=== PATIENT | male | born 1930 | race Caucasian/White ===

== ENCOUNTER → 2016-03-28 | Outpatient (CLI) | payer MEDICARE, OTHER | LOC: GMAH 11:09 | PROVIDERS: ATTEND Family Medicine | DX: D63.1 Anemia in chronic kidney disease (principal); N18.4 Chronic kidney disease, stage 4 (severe) ==

== ENCOUNTER → 2016-05-18 | Outpatient (CLI) | payer MEDICARE, OTHER | END | disposition home or self-care (01) | LOC: GMAH 10:19 | PROVIDERS: ATTEND Family Medicine | DX: N18.4 Chronic kidney disease, stage 4 (severe) (principal) ==

== ENCOUNTER → 2016-06-29 | Outpatient (CLI) | payer MEDICARE, OTHER | LOC: GMAH 11:30 | PROVIDERS: ATTEND Family Medicine | DX: N18.4 Chronic kidney disease, stage 4 (severe) (principal); D63.1 Anemia in chronic kidney disease ==

== ENCOUNTER → 2016-07-19 | Outpatient (CLI) | payer MEDICARE, OTHER | END | disposition home or self-care (01) | LOC: GMA 10:25 | PROVIDERS: ATTEND Family Medicine | DX: Z12.5 Encounter for screening for malignant neoplasm of prostate (principal); E03.9 Hypothyroidism, unspecified | CPT/HCPCS: 84443; 84550; G0103 ==

== ENCOUNTER → 2016-07-20 | Outpatient (CLI) | payer MEDICARE, OTHER | END | disposition home or self-care (01) | LOC: GMAH 16:51 | PROVIDERS: ATTEND Family Medicine | DX: N39.0 Urinary tract infection, site not specified (principal) ==

== ENCOUNTER → 2016-08-17 | Outpatient (CLI) | payer MEDICARE, OTHER | END | disposition home or self-care (01) | LOC: GMAH 09:41 | PROVIDERS: ATTEND Family Medicine | DX: N18.4 Chronic kidney disease, stage 4 (severe) (principal); D63.1 Anemia in chronic kidney disease ==

== ENCOUNTER → 2016-11-23 | Outpatient (CLI) | payer MEDICARE, OTHER | END | disposition home or self-care (01) | LOC: GMAH 10:38 | PROVIDERS: ATTEND Family Medicine | DX: N18.4 Chronic kidney disease, stage 4 (severe) (principal); E64.9 Sequelae of unspecified nutritional deficiency ==

== ENCOUNTER → 2017-01-09 | Outpatient (CLI) | payer MEDICARE, OTHER | END | disposition home or self-care (01) | LOC: GMAH 09:34 | PROVIDERS: ATTEND Family Medicine | DX: N18.4 Chronic kidney disease, stage 4 (severe) (principal); D63.1 Anemia in chronic kidney disease ==

== ENCOUNTER → 2017-02-10 | Outpatient (CLI) | payer MEDICARE, OTHER ==
--- NOTE | 2017-02-10 13:30 | US ---
EXAM DESCRIPTION: Carotid Duplex: ULTRASOUND. CLINICAL HISTORY: OCCLUSION AND STENOSIS OF LEFT CAROTID ARTERY COMPARISON: None. TECHNIQUE: Transcutaneous scanning utilizing 2-dimensional and Doppler modes to evaluate the bilateral carotid systems and vertebral arteries. Percentage of diameter of stenosis or no stenosis recorded will be based upon NASCET criteria. FINDINGS: Peak systolic/end diastolic (CM-Sec) CCA Right 52/10 Left 60/7. ICA Right proximal 59/9, distal 48/0. Left proximal 36/11, mid 36/8. Vertebral Right 43/7 Left 20/4. ECA (PS Only) Right 36 left 44. ICA/CCA peak systolic ratio: Right 1.1 Left 1.6 ICA/CCA end diastolic ratio: Right 0.9 Left 1.5 Vertebral arteries: antegrade flow. Comments: Atherosclerotic plaque in the bilateral common carotid bifurcations. Spectral broadening bilateral proximal and mid ICAs. Proximal right ICA. Area stenosis 28%; diameter stenosis 49%. Right common carotid bulb area stenosis 40%; diameter stenosis 40%. Left CCA bulb area stenosis 35%; diameter stenosis 37%. Left proximal ICA. Area stenosis 46%; diameter stenosis 30%. IMPRESSION: 1. Doppler evaluation of the bilateral carotid systems and vertebral arteries shows no hemodynamically significant stenoses. 2. No significant amount of plaque seen in the carotid arteries bilaterally. Bilateral vertebral arteries showed antegrade-cephalad flow. Electronically signed by: Everette Orozco MD 02/10/2017 1:29 PM SECRETARIAL STENOGRAPHER
== END ==
LOC: US 10:57
PROVIDERS: ATTEND Family Medicine
DX: I65.22 Occlusion and stenosis of left carotid artery (principal)

== ENCOUNTER → 2017-05-15 | Outpatient (CLI) | payer MEDICARE, OTHER | LOC: GMAH 09:17 | PROVIDERS: ATTEND Family Medicine | DX: D64.9 Anemia, unspecified (principal); N18.4 Chronic kidney disease, stage 4 (severe) ==

== ENCOUNTER → 2017-07-10 | Outpatient (CLI) | payer MEDICARE, OTHER | LOC: GMAH 10:32 | PROVIDERS: ATTEND Family Medicine | DX: D63.1 Anemia in chronic kidney disease (principal); N18.4 Chronic kidney disease, stage 4 (severe) ==

== ENCOUNTER → 2017-07-25 | Outpatient (CLI) | payer MEDICARE, OTHER | LOC: GMAH 10:36 | PROVIDERS: ATTEND Family Medicine | DX: E03.9 Hypothyroidism, unspecified (principal); N39.0 Urinary tract infection, site not specified; Z12.5 Encounter for screening for malignant neoplasm of prostate; M10.9 Gout, unspecified | CPT/HCPCS: 84443; 84550; 87086; G0103 ==

== ENCOUNTER → 2017-08-28 | Outpatient (CLI) | payer MEDICARE, OTHER ==
--- NOTE | 2017-08-28 11:42 | RAD ---
EXAM DESCRIPTION: Radiographs of the right Shoulder: CLINICAL HISTORY: M25.511. Pain in right shoulder. COMPARISON: Portable chest 01/04/2010. TECHNIQUE: AP internal external rotation images. Lateral "Y" image. axillary image, right shoulder. FINDINGS: Marked joint space narrowing right glenohumeral space with subchondral sclerosis and radiolucency on the humeral head and glenoid. Marginal spurs on both services. Superior migration of the humeral head abutting the undersurface of the acromion. Bony loose bodies in the joint capsule with effusion. Some bony densities may represent tendon or muscular calcifications, especially in the rotator interval. Narrowing of the AC joint with inferior marginal spurs. No definite fractures. No bony abnormalities of the right ribs. Pleural thickening in the hemithorax. 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 Also arthrosis of the AC joint with marginal spurs encroaching on the rotator interval. Radiodense loose bodies in the joint capsule and possible soft tissue calcifications. This represents significant unfavorable change compared to appearance of the right shoulder on portable chest x-ray in January 2010. Electronically signed by: Everette Orozco MD 08/28/2017 11:41 AM CDT
== END ==
LOC: RAD 08:10
PROVIDERS: ATTEND Orthopaedic Surgery
DX: M25.511 Pain in right shoulder (principal)

== ENCOUNTER → 2017-09-18 | Outpatient (CLI) | payer MEDICARE, OTHER | LOC: GMAH 12:11 | PROVIDERS: ATTEND Family Medicine | DX: N18.4 Chronic kidney disease, stage 4 (severe) (principal); D63.1 Anemia in chronic kidney disease ==

== ENCOUNTER → 2018-03-05 | Outpatient (CLI) | payer MEDICARE, OTHER ==
--- NOTE | 2018-03-05 10:12 | US ---
EXAM DESCRIPTION: Aorta: Ultrasound. CLINICAL HISTORY: ABDOMINAL AORTIC ANEURYSM COMPARISON: Abdominal CT scan noncontrast 04/03/2014. TECHNIQUE: Transcutaneous scanning: Two-dimensional and Doppler modes. FINDINGS: Abdominal aorta diameter (cm) Proximal: 2.3 cm. Mid: 3.6. Distal: 2.0. Common Iliac diameter (mm) Right: 13 x 14. Left: 11 x 11. Other: Atherosclerotic irregularity and calcification of the intima.. IMPRESSION: 3.6 cm abdominal aortic aneurysm is greater than 1.5 times proximal abdominal aorta diameter. Borderline aneurysm right common iliac artery. Maximum diameter of the mid abdominal aorta was 3.[address] scan of the abdomen in 2014. Atherosclerotic changes in the vessels. [facility] Best Practice recommendations one-year imaging follow-up based upon the Journal of vascular surgery guidelines for follow-up imaging of abdominal aortic aneurysms. Please see below.* *AAA Size: Follow-up Recommendation (1): 3.5 - 3.9 cm Every 12 months (1)Based upon the Society for Vascular Surgery Guidelines: J Vasc Surg. 2009 Oct;50(4 Suppl):S2-49 (2)For aortas of max phyllis of 2.6-2.9 cm that meet criteria for AAA (>= 1.5 x proximal normal segment) Electronically signed by: Everette Orozco MD 03/05/2018 10:10 AM PHOTOENGRAVING RETOUCHER
== END ==
LOC: US 08:57
PROVIDERS: ATTEND Family Medicine
DX: I71.4 Abdominal aortic aneurysm, without rupture (principal)

== ENCOUNTER → 2018-03-08 | Outpatient (CLI) | payer MEDICARE, OTHER | LOC: GMAH 14:12 | PROVIDERS: ATTEND Family Medicine | DX: N18.4 Chronic kidney disease, stage 4 (severe) (principal) ==

== ENCOUNTER 2018-07-16 09:39 | Emergency (ER) | payer MEDICARE, OTHER ==
--- NOTE | 2018-07-16 10:23 | ED.PDOC ---
History of Present Illness - General Chief Complaint: General Stated Complaint: scrotal bleeding Time Seen by Provider: 07/16/18 09:58 Source: patient, family - History of Present Illness Initial Comments: HE HAS BEE BLEEDING INTERMITTENTLY FROM THE SCROTUM FOR THE PAST THREE WEEKS. AT TIMES IT IS MORE THAN OTHER ANS HAS BEEN USING A KOTEX. USES ASA 325 DAILY. DENIES ANY PAIN. Timing/Duration: other - THREE WEEKS Severity: mild Worsening Factors: nothing Associated Symptoms: denies symptoms Allergies/Adverse Reactions: Allergies NO KNOWN ALLERGY Allergy (Verified 07/16/18 09:59) Home Medications: Ambulatory Orders Allopurinol [Zyloprim] 300 mg PO DAILY 01/20/15 Aspirin [(None)] 325 mg PO QD 01/20/15 Diltiazem HCl Coated Beads [Diltiazem Cd] 80 mg PO DAILY 01/20/15 Dorzolamide HCl-Timolol Maleat [Dorzolamide HCl/Timolol M 22.3-6.8 mg/ml] 1 nirmal OP BID 01/20/15 Levothyroxine Sodium 50 mcg PO DAILY 01/20/15 Omeprazole 20 mg PO LAURA-OTH-DAY 01/20/15 Sodium Bicarbonate Tab 40 gr PO TID 01/20/15 Travoprost [Travatan Z] 1 drop OP BEDTIME 01/20/15 Review of Systems - Review of Systems Constitutional: States: no symptoms reported EENTM: States: no symptoms reported Respiratory: States: no symptoms reported Cardiology: States: no symptoms reported Gastrointestinal/Abdominal: States: no symptoms reported Genitourinary: States: no symptoms reported Musculoskeletal: States: no symptoms reported Skin: States: other - SCROTAL BLEEDING Neurological: States: no symptoms reported Endocrine: States: no symptoms reported Hematologic/Lymphatic: States: easy bleeding Past Medical History (General) - Patient Medical History Hx Congestive Heart Failure: No Hx Diabetes: No Physical Exam - Physical Exam General Appearance: Alert, No apparent distress, Well Developed, Well Hydrated Eye Exam: bilateral normal Ears, Nose, Throat: hearing grossly normal, normal ENT inspection, normal pharynx Neck: non-tender, full range of motion, supple, normal inspection Respiratory: chest non-tender, lungs clear, normal breath sounds, no respiratory distress, no accessory muscle use Cardiovascular/Chest: normal peripheral pulses, regular rate, rhythm, no edema, no gallop, no JVD, no murmur Peripheral Pulses: radial,right: 2+, radial,left: 2+ Gastrointestinal/Abdominal: normal bowel sounds, non tender, soft, no organomegaly, no pulsatile mass Rectal Exam: deferred Back Exam: normal inspection Extremity: normal range of motion 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 AT THE TIME OF THE EXAM HE HAS SOME DRIED BLOOD ON THE SCROTUM BUT THERE IS NO ACTIVE BLEEDING. THESE ARE MULTIPLE ANGIOMAS. I BELIEVE HE WOULD BE BETTER SERVED BY SEEING HIS SKIN DOCTOR OR THE UROLOGIST. Departure - Departure Clinical Impression: Angioma of skin Time of Disposition: 10:28 Disposition: Discharge to Home or Self Care Condition: Good Departure Forms: ED Discharge - Pt. Copy, Patient Portal Self Enrollment Referrals: Manny Ramey MD [Primary Care Provider] - 1-2 Weeks Home Medications: Ambulatory Orders Allopurinol [Zyloprim] 300 mg PO DAILY 01/20/15 Aspirin [(None)] 325 mg PO QD 01/20/15 Diltiazem HCl Coated Beads [Diltiazem Cd] 80 mg PO DAILY 01/20/15 Dorzolamide HCl-Timolol Maleat [Dorzolamide HCl/Timolol M 22.3-6.8 mg/ml] 1 nirmal OP BID 01/20/15 Levothyroxine Sodium 50 mcg PO DAILY 01/20/15 Omeprazole 20 mg PO LAURA-OTH-DAY 01/20/15 Sodium Bicarbonate Tab 40 gr PO TID 01/20/15 Travoprost [Travatan Z] 1 drop OP BEDTIME 01/20/15 Additional Instructions: SUGGEST TO FOLLOW UP WITH YOUR SKIN DOCTOR. MOST LIKELY YOU WILL NEED THESE ANGIOMAS CAUTERIZED.
[2018-07-16 10:24] VITALS: TEMP 97.8
[2018-07-16 11:09] VITALS: BP 160/79; O2SAT 96
== END 2018-07-16 10:52 | disposition home or self-care (01) ==
LOC: ER 09:39
DX: D18.01 Hemangioma of skin and subcutaneous tissue (principal); Z79.82 Long term (current) use of aspirin; Z79.899 Other long term (current) drug therapy

== ENCOUNTER 2018-09-14 08:16 | Emergency (ER) | payer MEDICARE, OTHER ==
--- NOTE | 2018-09-14 08:28 | ED.PDOC ---
History of Present Illness - General Chief Complaint: Trauma Stated Complaint: Standing level fall w/ head injury Time Seen by Provider: 09/14/18 08:24 Source: patient, family, EMS Exam Limitations: no limitations - History of Present Illness Initial Comments: patient is a very pleasant 87-year-old who was in his garage and bent over to put some rags in a bucket when all of a sudden the room started spinning and he fell down. Patient denies any loss of consciousness but he hit his head when he fell and landed underneath the car. He denies any injury to the rest of his body although still he states he always has aches and pains of his joints. Patient has been battling some vertigo over the past several weeks that he's been working with a doctor for. Patient states currently he is not dizzy, denies vision change, and has no emesis. 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 He was on aspirin until 4 weeks ago when it was stopped after he started having bleeding with even a small dose. Occurred: just prior to arrival Severity: moderate Pain Location: head Method of Injury: fall Worsening Factors: rest Loss of Consciousness: no loss of consciousness Associated Symptoms (Fall): dizziness Allergies/Adverse Reactions: Allergies NO KNOWN ALLERGY Allergy (Verified 09/14/18 08:37) Home Medications: Ambulatory Orders Allopurinol [Zyloprim] 300 mg PO DAILY 01/20/15 Aspirin [(None)] 325 mg PO QD 01/20/15 Diltiazem HCl Coated Beads [Diltiazem Cd] 80 mg PO DAILY 01/20/15 Dorzolamide HCl-Timolol Maleat [Dorzolamide HCl/Timolol M 22.3-6.8 mg/ml] 1 nirmal OP BID 01/20/15 Levothyroxine Sodium 50 mcg PO DAILY 01/20/15 Omeprazole 20 mg PO LAURA-OTH-DAY 01/20/15 Sodium Bicarbonate Tab 40 gr PO TID 01/20/15 Travoprost [Travatan Z] 1 drop OP BEDTIME 01/20/15 Review of Systems - Review of Systems Constitutional: States: no symptoms reported. Denies: chills, fever EENTM: States: no symptoms reported. Denies: blurred vision, double vision, ear pain, nose pain Respiratory: States: no symptoms reported. Denies: cough, short of breath Cardiology: States: no symptoms reported. Denies: chest pain, palpitations Gastrointestinal/Abdominal: States: no symptoms reported. Denies: abdominal pain, diarrhea, nausea, vomiting Genitourinary: States: no symptoms reported Musculoskeletal: States: see HPI Past Medical History (General) - Patient Medical History Hx Congestive Heart Failure: No Hx Hypertension: Yes Hx Thyroid Disease: Yes Hx Diabetes: No Hx Cancer: Yes - skin only Hx Hepatitis C: No - Vaccination History Hx Tetanus, Diphtheria Vaccination: No Hx Influenza Vaccination: Yes Hx Pneumococcal Vaccination: Yes - Social History Hx Tobacco Use: No Hx Alcohol Use: Yes - occ beer Hx Substance Use: No Hx Substance Use Treatment: No Hx Depression: No Family Medical History - Family History Mother Living Status: Hx Cardiac Disease: Yes Physical Exam - Physical Exam General Appearance: Alert, Comfortable, No apparent distress Head Injury: other - 4 cm hematoma to the posterior left scalp with no laceration Eye Exam: bilateral abnormal pupil - s/p cataract removal left ENT Exam: hearing grossly normal, no evidence of ENT injury, no dental injury Neck Exam: non-tender, full range of motion, normal alignment, normal inspection Cardiovascular/Respiratory: regular rate, rhythm, no M/R/G, normal peripheral pulses, no JVD, normal breath sounds, no respiratory distress Gastrointestinal/Abdominal: normal bowel sounds, non tender, soft Back Exam: normal inspection, no CVA tenderness Extremity Exam: no evidence of injury 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, no motor/sensory deficits, alert, oriented x 3 Skin Exam: normal color - Osvaldo Coma Score Best Eye Response ([place]): (4) open spontaneously Best Verbal Response ([place]): (5) oriented Best Motor Response ([place]): (6) obeys commands Osvaldo Total: 15 Progress - Results/Orders Results/Orders: Patient Name: ELSA YEE Gender: Male Date of : 1930 Referring Physician: ROMY TONEY Organization: [facility] Accession Number: [id number] Requested Date: September 14, 2018 08:24 Report Status: Final Requested Procedure: 1 Procedure Description: Head Modality: CT Findings Reporting MD: [place], Durga Fellow MD: Not available Dictation Time: Insurance Sales Executive: Not available Acid Cutter Date: EXAM DESCRIPTION: Head CLINICAL HISTORY: fall with head injury no LOC COMPARISON: None available TECHNIQUE: Multiple axial images of the head without contrast. Multiplanar reformatted images. This exam was performed according to our departmental dose-optimization program, which includes automated exposure control, adjustment of the mA and/or kV according to patient size and/or use of iterative reconstruction technique. FINDINGS: There is no CT evidence of intracranial hemorrhage, mass effect, or large territory infarction. Moderate generalized volume loss. Moderate patchy supratentorial white matter hypodensities. There are no abnormal extra-axial fluid collections. Calcific plaque in the visualized arteries. No acute calvarial defect. Large left parietal scalp hematoma. The visualized paranasal sinuses and the mastoids are clear. IMPRESSION: 1. No acute intracranial abnormality. 2. Left parietal scalp hematoma. 3. Advanced senescent changes. Electronically signed by: Durga Almanzar MD 09/14/2018 9:19 AM CDT Patient Name: ELSA YEE Gender: Male Date of : 1930 Referring Physician: ROMY TONEY Organization: [facility] Accession Number: [id number] Requested Date: September 14, 2018 08:24 Report Status: Final Requested Procedure: 1 Procedure Description: Cervical Spine Modality: CT Findings Reporting MD: Durga Almanzar MD: Not available Dictation Time: Insurance Sales Executive: Not available Acid Cutter Date: EXAM DESCRIPTION: Cervical Spine CLINICAL HISTORY: fall with head injury no LOC COMPARISON: None Available. TECHNIQUE: Multiple axial images of the cervical spine without contrast. Multiplanar reformatted images. This exam was performed according to our departmental dose-optimization program, which includes automated exposure control, adjustment of the mA and/or kV according to patient size and/or use of iterative reconstruction technique. FINDINGS: The bones are demineralized, which limits evaluation. Straightening of the normal cervical lordosis. Vertebral body stature is maintained. There is no acute fracture or destructive osseous lesion. Advanced multilevel spondylitic changes throughout the cervical spine with multilevel severe disc narrowing, most advanced at C5-C6. Advanced degenerative changes at C1-C2. Interbody fusion at C6-C7. Multilevel disc osteophyte complexes, facet hypertrophy, and uncovertebral spurring. At C5-C6, there is moderate spinal canal stenosis and severe bilateral foraminal stenosis. Less pronounced stenoses at the remaining levels. Atherosclerosis in the visualized arteries. Emphysema and fibrosis in the lung apices. [facility] [address] [place] [address], [address] [place], [place] T [phone] F [phone] [facility] - Report exported on Sep 14, 2018 09:24:13 -0500 - Page 2 of 2 IMPRESSION: 1. No CT evidence of an acute osseous abnormality in the cervical spine. 2. Advanced multilevel spondylitic changes. 3. Other findings as above. Departure - Departure Clinical Impression: Contusion of head Qualifiers: Encounter type: initial encounter Contusion of head detail: scalp Qualified Code(s): S00.03XA - Contusion of scalp, initial encounter Fall Qualifiers: Encounter type: initial encounter Qualified Code(s): W19.XXXA - Unspecified fall, initial encounter Disposition: Discharge to Home or Self Care Condition: Good Departure Forms: ED Discharge - Pt. Copy, Patient Portal Self Enrollment Instructions: DI for Trauma Referrals: Manny Ramey MD [Primary Care Provider] - 1-2 Weeks Home Medications: Ambulatory Orders Allopurinol [Zyloprim] 300 mg PO DAILY 01/20/15 Aspirin [(None)] 325 mg PO QD 01/20/15 Diltiazem HCl Coated Beads [Diltiazem Cd] 80 mg PO DAILY 01/20/15 Dorzolamide HCl-Timolol Maleat [Dorzolamide HCl/Timolol M 22.3-6.8 mg/ml] 1 nirmal OP BID 01/20/15 Levothyroxine Sodium 50 mcg PO DAILY 01/20/15 Omeprazole 20 mg PO LAURA-OTH-DAY 01/20/15 Sodium Bicarbonate Tab 40 gr PO TID 01/20/15 Travoprost [Travatan Z] 1 drop OP BEDTIME 01/20/15 Additional Instructions: follow up with PCP in 3-4 days, return to ER for altered LOC, vision change, emesis
--- NOTE | 2018-09-14 09:19 | CT ---
EXAM DESCRIPTION: Cervical Spine CLINICAL HISTORY: fall with head injury no LOC COMPARISON: None Available. TECHNIQUE: Multiple axial images of the cervical spine without contrast. Multiplanar reformatted images. This exam was performed according to our departmental dose-optimization program, which includes automated exposure control, adjustment of the mA and/or kV according to patient size and/or use of iterative reconstruction technique. FINDINGS: The bones are demineralized, which limits evaluation. Straightening of the normal cervical lordosis. Vertebral body stature is maintained. There is no acute fracture or destructive osseous lesion. Advanced multilevel spondylitic changes throughout the cervical spine with multilevel severe disc narrowing, most advanced at C5-C6. Advanced degenerative changes at C1-C2. Interbody fusion at C6-C7. Multilevel disc osteophyte complexes, facet hypertrophy, and uncovertebral spurring. At C5-C6, there is moderate spinal canal stenosis and severe bilateral foraminal stenosis. Less pronounced stenoses at the remaining levels. Atherosclerosis in the visualized arteries. Emphysema and fibrosis in the lung apices. IMPRESSION: 1. No CT evidence of an acute osseous abnormality in the cervical spine. 2. Advanced multilevel spondylitic changes. 3. Other findings as above. Electronically signed by: Durga Almanzar MD 09/14/2018 9:17 AM CDT
--- NOTE | 2018-09-14 09:21 | CT ---
EXAM DESCRIPTION: Head CLINICAL HISTORY: fall with head injury no LOC COMPARISON: None available TECHNIQUE: Multiple axial images of the head without contrast. Multiplanar reformatted images. This exam was performed according to our departmental dose-optimization program, which includes automated exposure control, adjustment of the mA and/or kV according to patient size and/or use of iterative reconstruction technique. FINDINGS: There is no CT evidence of intracranial hemorrhage, mass effect, or large territory infarction. Moderate generalized volume loss. Moderate patchy supratentorial white matter hypodensities. There are no abnormal extra-axial fluid collections. Calcific plaque in the visualized arteries. No acute calvarial defect. Large left parietal scalp hematoma. The visualized paranasal sinuses and the mastoids are clear. IMPRESSION: 1. No acute intracranial abnormality. 2. Left parietal scalp hematoma. 3. Advanced senescent changes. Electronically signed by: Durga Almanzar MD 09/14/2018 9:19 AM CDT
[2018-09-14] MEDS ORDERED: cloNIDine HCL 0.1 MG TAB PO ONE (09:34)
[2018-09-14 11:02] VITALS: BP 156/95; TEMP 97.6; O2SAT 96
== END 2018-09-14 10:50 | disposition home or self-care (01) ==
LOC: ER 08:16
DX: S00.03XA Contusion of scalp, initial encounter (principal); R42 Dizziness and giddiness; M48.02 Spinal stenosis, cervical region; I10 Essential (primary) hypertension; E07.9 Disorder of thyroid, unspecified; Z85.828 Personal history of other malignant neoplasm of skin; Z79.899 Other long term (current) drug therapy; W18.30XA Fall on same level, unspecified, initial encounter; Y92.008 Other place in unspecified non-institutional (private) residence as the place of occurrence of the external cause

== ENCOUNTER → 2018-11-16 | Outpatient (CLI) | payer MEDICARE, OTHER ==
--- NOTE | 2018-11-17 09:19 | RAD ---
EXAM DESCRIPTION: Shoulder,Right 2 or More Views CLINICAL HISTORY: 87 years Male, PAIN IN RIGHT SHOULDER COMPARISON: August 28, 2017 Findings: Marked glenohumeral osteoarthritis. High riding humeral head. Narrowing of the subacromial space. Moderate acromioclavicular osteoarthritis. No acute fracture or dislocation. Visualized chest is clear. No focal soft tissue abnormality. Similar calcification adjacent the proximal humeral shaft. IMPRESSION: Chronic degenerative changes in the right shoulder. No acute osseous abnormality. Electronically signed by: Sylvester Can MD 11/17/2018 9:17 AM CDT
--- NOTE | 2018-11-17 09:24 | RAD ---
EXAM DESCRIPTION: Hip,Right 2 Views (accession [id number]), Pelvis (accession [id number]), Hip,Left 2 Views (accession [id number]) CLINICAL HISTORY: 87 years Male, PAIN IN RIGHT HIP COMPARISON: None. Findings: Mild left hip osteoarthritis. Narrowing of the sacroiliac joints. Large colonic stool volume. No fracture identified. Moderate right hip osteoarthritis. Partially visualized lower lumbar spondylosis, most pronounced at L5/S1 with marked right lateral disc space narrowing. Osteopenia. IMPRESSION: Chronic degenerative changes in the pelvis/hips. No acute process identified. Electronically signed by: Sylvester Cna MD 11/17/2018 9:23 AM CDT
--- NOTE | 2018-11-17 09:24 | RAD ---
EXAM DESCRIPTION: Hip,Right 2 Views (accession [id number]), Pelvis (accession [id number]), Hip,Left 2 Views (accession [id number]) CLINICAL HISTORY: 87 years Male, PAIN IN RIGHT HIP COMPARISON: None. Findings: Mild left hip osteoarthritis. Narrowing of the sacroiliac joints. Large colonic stool volume. No fracture identified. Moderate right hip osteoarthritis. Partially visualized lower lumbar spondylosis, most pronounced at L5/S1 with marked right lateral disc space narrowing. Osteopenia. IMPRESSION: Chronic degenerative changes in the pelvis/hips. No acute process identified. Electronically signed by: Sylvester Can MD 11/17/2018 9:23 AM CDT
--- NOTE | 2018-11-17 09:25 | RAD ---
EXAM DESCRIPTION: Hip,Right 2 Views (accession [id number]), Pelvis (accession [id number]), Hip,Left 2 Views (accession [id number]) CLINICAL HISTORY: 87 years Male, PAIN IN RIGHT HIP COMPARISON: None. Findings: Mild left hip osteoarthritis. Narrowing of the sacroiliac joints. Large colonic stool volume. No fracture identified. Moderate right hip osteoarthritis. Partially visualized lower lumbar spondylosis, most pronounced at L5/S1 with marked right lateral disc space narrowing. Osteopenia. IMPRESSION: Chronic degenerative changes in the pelvis/hips. No acute process identified. Electronically signed by: Sylvester Can MD 11/17/2018 9:23 AM CDT
== END ==
LOC: RAD 07:53
PROVIDERS: ATTEND Orthopaedic Surgery
DX: M16.0 Bilateral primary osteoarthritis of hip (principal); M19.011 Primary osteoarthritis, right shoulder

== ENCOUNTER → 2018-12-17 | Outpatient (CLI) | payer MEDICARE, OTHER | LOC: LAB.O 10:20 | PROVIDERS: ATTEND Orthopaedic Surgery | DX: Z01.818 Encounter for other preprocedural examination (principal) ==

== ENCOUNTER → 2018-12-27 | Outpatient (CLI) | payer MEDICARE, OTHER ==
--- NOTE | 2018-12-28 15:39 | CT ---
Study: CT of the Right Shoulder. Indication: LOCALIZED PRIMARY OSTEOARTHRITIS OF THE SHOULDER REGION Technique: Axial CT of the right shoulder was performed without contrast. Coronal and sagittal reformats performed. This exam was performed according to our departmental dose-optimization program, which includes automated exposure control, adjustment of the mA and/or kV according to patient size and/or use of iterative reconstruction technique. Comparison: None. Findings: Severe AC joint osteoarthritis. Type II acromion. Superior migration humeral head with suspected full-thickness, fullwidth retracted supraspinatus and infraspinatus tendon tearing with multifocal ossification within the retracted tendons. Mild to moderate atrophy and grade 2-3 fatty infiltration rotator cuff musculature. Severe glenohumeral joint osteoarthritis. Complete joint space loss. Pronounced cortical remodeling and subchondral sclerosis as well as cystic change throughout the joint. Moderate inferior osteophyte formation. Several ossified loose bodies throughout the joint. Prominent fluid distention subacromial/subdeltoid bursa with ganglionic like distention extending into the lateral deltoid musculature. Tree-in-bud nodular opacities throughout the peripheral aspects of the right lung. Impression: Severe glenohumeral joint osteoarthritis with scattered loose bodies. Chronic appearing full-thickness, fullwidth retracted supraspinatus and infraspinatus tendon tearing as above with atrophy and fatty infiltration rotator cuff musculature. Tree-in-bud nodular opacities throughout the right lung. Additional findings as above. Electronically signed by: Samir Sutherland MD 12/28/2018 3:37 PM CDT
== END ==
LOC: CT 16:05
PROVIDERS: ATTEND Orthopaedic Surgery
DX: M19.011 Primary osteoarthritis, right shoulder (principal); M75.101 Unspecified rotator cuff tear or rupture of right shoulder, not specified as traumatic; R91.8 Other nonspecific abnormal finding of lung field

== ENCOUNTER → 2019-01-01 | Day surgery (SDC) | payer MEDICARE, OTHER ==
--- NOTE | 2018-12-20 11:57 | RAD ---
Procedure: XR CHEST 2 VIEWS Exam Date: 12/20/2018 Ordering Provider: Gopi Hernandez Clinical Indication: PREOP Comparison: 12/03/2018 Findings: Cardiomediastinal silhouette is within normal limits. Aortic calcification. No focal lung consolidation. Biapical pleural parenchymal scarring. Left basilar scarring. No pleural effusion. No pneumothorax. No acute osseous abnormality. Impression: 1. No acute abnormality in the chest. Electronically signed by: Lauro Luz MD 12/20/2018 11:56 AM CDT
--- NOTE | 2018-12-23 22:05 | HP ---
CHIEF COMPLAINT: Right shoulder pain. HISTORY OF PRESENT ILLNESS: Mr. Dumont is an 88 year-old male with a history of severe shoulder pain. Mr. Dumont has had this going on for years. It has been getting progressively worse. Because of the ongoing pain he has had conservative measures which have included injections. Unfortunately the injections have failed to give him relief. He has had shoulder surgery previously for rotator cuff repair. He describes the pain as being at a 10 and limiting his activities. He has noted crepitus and popping as associated factors. Alleviating factors are none. He has had a CT scan as well as x-rays done for this. Because of the failure of conservative measures he has requested operative intervention. After discussing the risks, benefits, and alternatives to that he has given informed consent. PAST SURGICAL HISTORY: 1. Prostatectomy. 2. Cataract removal. 3. Herniorrhaphy. 4. Knee replacement. 5. Shoulder arthroscopy. 6. Tonsillectomy. 7. Multiple skin cancer removal. MEDICATIONS: 1. Omeprazole. 2. Cardia. 3. Allopurinol. 4. Travatan. 5. Timolol. 6. Levothyroxine. 7. Hydrochlorothiazide. 8. Advil. PAIN CONTRACT: None. ALLERGIES: NO KNOWN DRUG ALLERGIES. SOCIAL HISTORY: He does not drink, smoke or use any illicit drugs. FAMILY HISTORY: None pertinent to today's complaints. REVIEW OF SYSTEMS: Negative as per the patient except as indicated in the History of Present Illness. HEENT: The patient reports no symptoms. RESPIRATORY: The patient reports no symptoms. CARDIOVASCULAR: The patient reports no symptoms. GASTROINTESTINAL: The patient reports no symptoms. GENITOURINARY: The patient reports no symptoms. MUSCULOSKELETAL: Negative except as noted in History of Present Illness. SKIN: The patient reports no symptoms. NEUROLOGIC: The patient reports no symptoms. PHYSICAL EXAMINATION: VITAL SIGNS: Blood pressure 171/100, pulse 61, height 5' 9", weight 148. MENTAL STATUS: The patient is awake, alert, and is able to give a good history and participate in the physical. The patient is oriented to person, place, and time. SKIN: Normal tone and turgor. HEENT: Normocephalic, atraumatic. Pupils equal, round and reactive. Mucosal membranes are moist. NECK: Normal range of motion. No thyromegaly, no lymphadenopathy. CHEST: Normal respiratory excursion. CARDIAC: Regular rate and rhythm. No murmurs, rubs or gallops. MUSCULOSKELETAL: The bilateral lower extremities show no significant pain with range of motion of the hip, knee, ankle or digits. He has intact sensation. He walks with a slight shuffling gait. They are warm and well perfused. There is no laxity. The left upper extremity shows limitation in range of motion to about 90 degrees of abduction. Sensation is intact. 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 There is no deformity. He has positive Neer's and positive Marquez tests on that side. The right upper extremity shows abduction to about 50 degrees actively. He has severe pain and crepitus. He does have intact sensation. The lateral border of the shoulder shows severe pain. He has severe pain with forward flexion at 60 degrees. He has weakness in forward flexion and abduction. Extension is only to the plane of the body. I am able to get him about 90 degrees passively in flexion and abduction. He has positive Neer's and positive Marquez. RADIOLOGY: My interpretation of those x-rays shows severe arthritis. He has superior migration of the humeral head. ASSESSMENT: 1. Arthritis. 2. Rotator cuff tear. PLAN: At this point the plan is for reverse shoulder arthroplasty. We have discussed the risks, benefits, and alternatives to that and he has given informed consent for that. #[id number] [facility]
== END ==
LOC: AMB 05:25
PROVIDERS: ATTEND Orthopaedic Surgery
DX: Z01.818 Encounter for other preprocedural examination (principal); M25.511 Pain in right shoulder; Z53.9 Procedure and treatment not carried out, unspecified reason

== ENCOUNTER → 2019-02-05 | Outpatient (CLI) | payer MEDICARE, OTHER | LOC: GMA MATASK 14:21 | PROVIDERS: ATTEND Family Medicine | DX: E03.9 Hypothyroidism, unspecified (principal); I10 Essential (primary) hypertension ==

== ENCOUNTER 2019-02-18 13:46 | Emergency (ER) | payer MEDICARE, OTHER ==
--- NOTE | 2019-02-18 13:51 | ED.PDOC ---
History of Present Illness - General Time Seen by Provider: 02/18/19 13:49 Source: patient - History of Present Illness Initial Comments: 88 yo male with PMH of HTN who presents with cc of chest pain and dyspnea. Onset last night with persistence through this morning, up for most of the night with the sx's. Reports cc of chest pain throughout center of chest radiates BL chest wall, constant, 3/10 severity currently, pressure-like, at worst was 8/10 severity earlier this morning, worsens with exertion & deep breathing, improves some with rest, no meds tried for pain. Reports also moderate new onset dyspnea overnight and pains throughout his back. Denies any cough, fevers, chills, sore throat. Having some vague generalized abd discomfort but no n/v/d. No edema. No cardiac hx reported. Former smoker x50 years, quit 25+ years ago. Allergies/Adverse Reactions: Allergies NO KNOWN ALLERGY Allergy (Verified 09/14/18 08:37) Home Medications: Ambulatory Orders Dorzolamide HCl-Timolol Maleat [Dorzolamide HCl/Timolol M 22.3-6.8 mg/ml] 1 drop OP DAILY 01/20/15 Levothyroxine Sodium 75 mcg PO DAILY 01/20/15 Omeprazole 20 mg PO DAILY 01/20/15 Sodium Bicarbonate Tab 1,600 mg PO TID 01/20/15 Travoprost [Travatan Z] 1 drop OP BEDTIME 01/20/15 Allopurinol 300 ea PO DAILY 12/24/18 Diltiazem HCl Coated Beads [Cartia Xt] 180 mg PO DAILY 12/24/18 Ibuprofen [Advil] 200 mg PO PRN PRN 12/24/18 Propylene Glycol (Ophth) [Systane Complete] 0.6 % OP DAILY 12/24/18 Telmisartan-Hydrochlorothiazid [Telmisartan/Hydrochloroth 80-12.5 mg] 1 tab PO DAILY 12/24/18 Review of Systems - Review of Systems Review of Systems: 02/18/19 14:48 as per HPI Past Medical History (General) - Patient Medical History Hx Stroke: No Hx of COPD: No 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 Hx Congestive Heart Failure: No Hx Hypertension: Yes Hx Thyroid Disease: Yes Hx Diabetes: No Hx Gastroesophageal Reflux: Yes Hx Renal Disease: Yes Hx Cancer: Yes - skin only Hx Hepatitis C: No Hx MRSA: No - Vaccination History Hx Tetanus, Diphtheria Vaccination: No Hx Influenza Vaccination: Yes Hx Pneumococcal Vaccination: Yes - Social History Hx Tobacco Use: No Hx Alcohol Use: Yes - occ beer Hx Substance Use: No Hx Substance Use Treatment: No Hx Depression: No - Female History Patient : No Family Medical History - Family History Mother Living Status: Hx Cardiac Disease: Yes Physical Exam - Physical Exam General Appearance: Alert, No apparent distress Eye Exam: bilateral normal Ears, Nose, Throat: normal ENT inspection, normal pharynx Neck: non-tender, full range of motion, normal inspection Respiratory: chest non-tender, lungs clear, normal breath sounds, no respiratory distress Cardiovascular/Chest: normal peripheral pulses, regular rate, rhythm, no edema, no murmur Peripheral Pulses: radial,right: 2+, radial,left: 2+ Gastrointestinal/Abdominal: non tender, soft Back Exam: normal inspection, no vertebral tenderness Extremity: normal range of motion, non-tender, normal inspection, no pedal edema, no calf tenderness Neurologic: tearer II-XII nml as tested, no motor/sensory deficits, alert, normal mood/affect, oriented x 3 Skin Exam: normal color, warm/dry Progress - Progress Progress: 02/18/19 14:49 Chest pain -consider ACS vs PNA vs CHF vs PE vs MSK vs other -cardiac work-up, labs 02/18/19 14:56 -Initial trop elevated to 2.6 - EKG shows q waves anteroseptal leads and nonspec ific ST segment changes in lateral leads. Concern for NSTEMI. Transfer urgently for cardiology consultation. ASA 325, NTG, begin heparin gtt. -Pt has LUIS as well and elevated BNP 02/18/19 15:14 -Spoke with Dr. Fletcher (cardiology) and with Dr. Guo, hospitalist, who accepts pt for transfer to cardiac floor there, stable to go via ground EMS. Petr Adame MD Billing #[id number] - EKG/XRAY/CT EKG: Sinus - NSR, HR 65, no ST elevations noted, q waves in anteroseptal leads concerning for possible ischemia, nonspecific ST segment changes in lateral leads, intervals normal, axis normal, no prior EKG for comparison Departure - Departure Clinical Impression: NSTEMI (non-ST elevated myocardial infarction) Time of Disposition: :12 Disposition: Transfer to Hospital Condition: Serious Referrals: Girish Sabillon MD [Primary Care Provider] - 1-2 Weeks Home Medications: Ambulatory Orders Dorzolamide HCl-Timolol Maleat [Dorzolamide HCl/Timolol M 22.3-6.8 mg/ml] 1 drop OP DAILY 01/20/15 Levothyroxine Sodium 75 mcg PO DAILY 01/20/15 Omeprazole 20 mg PO DAILY 01/20/15 Sodium Bicarbonate Tab 1,600 mg PO TID 01/20/15 Travoprost [Travatan Z] 1 drop OP BEDTIME 01/20/15 Allopurinol 300 ea PO DAILY 12/24/18 Diltiazem HCl Coated Beads [Cartia Xt] 180 mg PO DAILY 12/24/18 Ibuprofen [Advil] 200 mg PO PRN PRN 12/24/18 Propylene Glycol (Ophth) [Systane Complete] 0.6 % OP DAILY 12/24/18 Telmisartan-Hydrochlorothiazid [Telmisartan/Hydrochloroth 80-12.5 mg] 1 tab PO DAILY 12/24/18 Transfer to Outside Facility - Transfer Information Decision to Transfer Date: 02/18/19 Decision to Transfer Time: 15:14 Reason for Transfer: required specialist not available - cardiology Accepting Provider:: Dr. Guo Accepting Facility: [facility]
--- NOTE | 2019-02-18 14:15 | RAD ---
EXAM DESCRIPTION: Chest,1 View CLINICAL HISTORY: 88 years Male, dyspnea COMPARISON: 12/20/2018. TECHNIQUE: AP radiograph of the chest was obtained. FINDINGS: Trachea is midline.The cardiomediastinal silhouette is normal in size. Bilateral pulmonary vascular congestion is noted.Airspace opacities in the left lower lobe most likely represent pneumonia. IMPRESSION: Bilateral pulmonary vascular congestion. Airspace opacities in the left lower lobe most likely represent pneumonia. Electronically signed by: Elise Inman MD 02/18/2019 2:14 PM [facility]
[2019-02-18 14:17] VITALS: TEMP 96.7
[2019-02-18] MEDS: SODIUM CHLORIDE 0.9% (FLUSH) 10 ML SYG IV PRN (14:20)
[2019-02-18] MEDS ORDERED: ASPIRIN TABLET 325 MG TAB ONE (14:52)
[2019-02-18] MEDS: NITROGLYCERIN 0.4 MG 25 EA TAB SL ONE (14:57)
[2019-02-18] MEDS: ASPIRIN (ENTERIC COATED) 325 MG TAB PO ONE (14:58)
[2019-02-18] MEDS: NITROGLYCERIN 2% 1 GM UD TOP ONE (14:58)
[2019-02-18] MEDS ORDERED: HEPARIN PREMIX 500 ML ONE (15:11)
[2019-02-18] MEDS: HEPARIN SODIUM (PORCINE) 5,000 U/ML VIAL IV ONE (15:19)
[2019-02-18] MEDS: HEPARIN PREMIX 25,000 UNITS in PREMIX BAG 1 BAG IVS SCH (15:26)
[2019-02-18 15:40] VITALS: O2SAT 98
[2019-02-18 16:26] VITALS: BP 147/86
== END 2019-02-18 16:29 | disposition short-term general hospital (02) ==
LOC: ER 13:46
DX: I21.4 Non-ST elevation (NSTEMI) myocardial infarction (principal); N17.9 Acute kidney failure, unspecified; R06.00 Dyspnea, unspecified; I10 Essential (primary) hypertension; I12.9 Hypertensive chronic kidney disease with stage 1 through stage 4 chronic kidney disease, or unspecified chronic kidney disease; N18.9 Chronic kidney disease, unspecified; E07.9 Disorder of thyroid, unspecified; K21.9 Gastro-esophageal reflux disease without esophagitis; Z85.828 Personal history of other malignant neoplasm of skin; Z87.891 Personal history of nicotine dependence; Z79.899 Other long term (current) drug therapy
CPT/HCPCS: 36415; 71045; 80053; 83880; 84484; 85025; 87502; 93005; J1644

== ENCOUNTER 2019-02-21 10:30 | Inpatient (IN) | payer MEDICARE, OTHER ==
[2019-02-21] MEDS ORDERED: ASPIRIN TABLET 325 MG TAB PO ONE (10:54)
[2019-02-21] MEDS ORDERED: CLOPIDOGREL 75 MG TAB PO ONE (10:55)
--- NOTE | 2019-02-21 11:47 | RAD ---
EXAM DESCRIPTION: Chest,2 Views CLINICAL HISTORY: 88 years Male, sob, recent mi COMPARISON: 18 February 2019. TECHNIQUE: PA/lateral FINDINGS: Apical and basilar interstitial scarring is observed. No acute infiltrate is seen. The heart is within range of normal. Degenerative changes are seen in the thoracic spine. 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 I see no acute cardiopulmonary pathology. Electronically signed by: John Logan MD 02/21/2019 11:46 AM [employer]
[2019-02-21] MEDS ORDERED: SODIUM CHLORIDE 0.9% 1000ML 1,000 ML IVS ONE (11:58)
[2019-02-21] MEDS ORDERED: CEFEPIME 1 GM in SODIUM CHLORIDE 0.9% 50ML 50 ML IVPB ONE (12:10)
[2019-02-21] MEDS ORDERED: CEFEPIME 2 GM VIAL ONE ×2 (12:13→19:59)
[2019-02-21] MEDS ORDERED: SODIUM CHLORIDE 0.9% 50ML 50 ML ONE ×2 (12:14→20:01)
--- NOTE | 2019-02-21 14:38 | CT ---
EXAM DESCRIPTION: Abdoment/Pelvis w/o Contrast CLINICAL HISTORY: 88 years Male, acute on chronic renal failure COMPARISON: None available. TECHNIQUE: Contiguous 3 mm axial images were obtained from the lung bases to the level of the proximal femora without the administration of intravenous or oral contrast. Sagittal and coronal reconstructions were reviewed. FINDINGS: Limited evaluation of the solid organs due to the lack of intravenous contrast. THORAX: Airspace opacities in the bilateral lower lobes most likely represent atelectasis. LIVER: The liver demonstrates normal size and density with no intrahepatic biliary ductal dilatation. GALLBLADDER: Grossly unremarkable. PANCREAS: Appears normal with no cystic or solid lesions. SPLEEN: Normal ADRENAL GLANDS: Normal with no nodules or masses. KIDNEYS: Left kidney is small and atrophied compared to the right kidney. The visualized ureters appear grossly unremarkable. STOMACH: Small hiatal hernia. The stomach is not well-distended limiting detailed evaluation. SMALL BOWEL: The small bowel loops demonstrate variable degrees of distention with no abnormal dilatation or other signs to suggest bowel obstruction. LARGE BOWEL: Multiple diverticuli are noted throughout the visualized colon, with no acute inflammation. Mild constipation. The appendix is well-visualized and appears normal No evidence of free intraperitoneal air or fluid. RETROPERITONEUM: Infrarenal abdominal aortic aneurysm measuring up to 4.7 cm noted. Moderate atherosclerotic disease is also present. The right common iliac artery is mildly aneurysmal and measures up to 1.8 cm. The inferior vena cava is normal in size and caliber. No abnormally enlarged retroperitoneal lymph nodes are identified. URINARY BLADDER: Collapsed with thick wall secondary to Matthew catheterization. The prostate gland is enlarged in size measuring 5.9 x 4.7 x 4.8 cm. The seminal vesicles appear normal. ADDITIONAL FINDINGS: Bilateral inguinal hernias with herniation of few small bowel loops into the right inguinal sac. However no bowel obstruction or strangulation. BONES: Moderate degenerative changes are identified in the visualized bones. 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 IMPRESSION: 1. Small and atrophied left kidney. No hydronephrosis or perinephric fluid collections bilaterally. 2. Colonic diverticulosis, with no acute inflammation. 3. 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 4. Infrarenal abdominal aortic aneurysm measuring up to 4.7 cm. 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 Recommend follow-up every 6 months and vascular consultation. Reference: J Am Michael Radiol 2013;10:789-794. This exam was performed according to our departmental dose-optimization program, which includes automated exposure control, adjustment of the mA and/or kV according to patient size and/or use of iterative reconstruction technique. Electronically signed by: Elise Inman MD 02/21/2019 2:36 PM [employer]
--- NOTE | 2019-02-21 15:16 | ED.PDOC ---
History of Present Illness - General Chief Complaint: Neuro Symptoms/Deficits Stated Complaint: numbness and coolness to left hand Time Seen by Provider: 02/21/19 10:36 Source: patient Exam Limitations: no limitations - History of Present Illness Initial Comments: the patient is a 88-year-old male presenting to the emergency room with family secondary to a feeling of mild shortness of breath and possibly some chest discomfort this morning after he woke up with some mild sensation of numbness and tingling and coldness to the first 3 digits of his left hand. He did become quite anxious with this. He had recently been at [facility] for aheart attack. Medical management was elected given the patient's poor renal function. He has not been having chest pain at home since then. He does still get somewhat short of breath with activity. He does have long-standing chronic renal insufficiency with a baseline creatinine of about 2.5. He does see Dr. Edward and did see him at [facility]. The patient has been started on Plavix and aspirin. We are giving him a dose here this morning. Patient is pleasant and cooperative and in no distress. No current chest pain or shortness of breath. He still does have some tingling to the first 3 digits of the left hand but no real numbness. Blood flow appears to be symmetrical. Capillary refills within normal limits. He moves arms well. He is pleasant and cooperative. He does do in and out catheterizations on himself twice daily. Timing/Duration: 1-3 hours Severity: mild Improving Factors: nothing Worsening Factors: nothing Associated Symptoms: shortness of breath Allergies/Adverse Reactions: Allergies NO KNOWN ALLERGY Allergy (Verified 02/21/19 10:48) Home Medications: Ambulatory Orders Dorzolamide HCl-Timolol Maleat [Dorzolamide HCl/Timolol M 22.3-6.8 mg/ml] 1 drop OP DAILY 01/20/15 Levothyroxine Sodium 75 mcg PO DAILY 01/20/15 Omeprazole 20 mg PO DAILY 01/20/15 Sodium Bicarbonate Tab 1,600 mg PO TID 01/20/15 Travoprost [Travatan Z] 1 drop OP BEDTIME 01/20/15 Allopurinol 300 ea PO DAILY 12/24/18 Diltiazem HCl Coated Beads [Cartia Xt] 180 mg PO DAILY 12/24/18 Ibuprofen [Advil] 200 mg PO PRN PRN 12/24/18 Propylene Glycol (Ophth) [Systane Complete] 0.6 % OP DAILY 12/24/18 Telmisartan-Hydrochlorothiazid [Telmisartan/Hydrochloroth 80-12.5 mg] 1 tab PO DAILY 12/24/18 Carvedilol [Coreg] 3.125 mg PO BID 02/21/19 Clopidogrel Bisulfate [Plavix] 75 mg PO QD 02/21/19 Lisinopril 5 mg PO DAILY 02/21/19 Rosuvastatin Calcium [Crestor] 20 mg PO BEDTIME 02/21/19 Review of Systems - Review of Systems Constitutional: States: no symptoms reported EENTM: States: no symptoms reported Respiratory: States: short of breath - mostly with exertion Cardiology: States: no symptoms reported Gastrointestinal/Abdominal: States: no symptoms reported Genitourinary: States: no symptoms reported Musculoskeletal: States: no symptoms reported Skin: States: no symptoms reported Neurological: States: see HPI, anxiety Endocrine: States: no symptoms reported All other Systems: No Change from Baseline Past Medical History (General) - Patient Medical History Hx Stroke: No Hx of COPD: No 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 Hx Congestive Heart Failure: No Hx Hypertension: Yes Hx Thyroid Disease: Yes Hx Diabetes: No Hx Gastroesophageal Reflux: Yes Hx Renal Disease: Yes Hx Cancer: Yes - skin only Hx Hepatitis C: No Hx MRSA: No Surgical History: tonsillectomy - Vaccination History Hx Tetanus, Diphtheria Vaccination: No Hx Influenza Vaccination: Yes Hx Pneumococcal Vaccination: Yes - Social History Hx Tobacco Use: No Hx Alcohol Use: Yes - occ beer Hx Substance Use: No Hx Substance Use Treatment: No Hx Depression: No - Female History Patient : No Family Medical History - Family History Mother Living Status: Hx Cardiac Disease: Yes Physical Exam - Physical Exam General Appearance: Alert, Comfortable, No apparent distress Eye Exam: bilateral normal Ears, Nose, Throat: hearing grossly normal, normal pharynx Neck: full range of motion, supple Respiratory: lungs clear, normal breath sounds, no respiratory distress, no accessory muscle use Cardiovascular/Chest: normal peripheral pulses, regular rate, rhythm, no edema Peripheral Pulses: radial,right: 2+, radial,left: 2+ Gastrointestinal/Abdominal: non tender, soft Rectal Exam: deferred Back Exam: no CVA tenderness, no vertebral tenderness Extremity: normal range of motion, non-tender, no pedal edema, normal capillary refill 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, alert, normal mood/affect, oriented x 3 Skin Exam: normal color Comments: Vital Signs - 24 hr 02/21/19 02/21/19 02/21/19 10:30 10:43 10:51 Temperature 97.9 F Pulse Rate [ 71 90 83 MONITOR] Respiratory 14 18 Rate Blood Pressure 109/66 118/72 [LA] O2 Sat by Pulse 99 97 Oximetry 02/21/19 02/21/19 02/21/19 11:00 11:40 12:30 Temperature Pulse Rate [ 84 79 MONITOR] Respiratory 13 14 Rate Blood Pressure 109/69 109/68 [LA] O2 Sat by Pulse 99 100 100 Oximetry 02/21/19 13:00 Temperature Pulse Rate [ 78 MONITOR] Respiratory 16 Rate Blood Pressure 125/75 [LA] O2 Sat by Pulse 100 Oximetry Progress - Progress Progress: 02/21/19 15:18 the patient is a 88-year-old male presenting to the emergency room secondary to primarily waking up with some tingling to left hand. Clinically this looks more consistent with carpal tunnel syndrome however in a patient that has just recently had a heart attack we cannot definitively rule out further cardiac sources. Initial and repeat cardiac enzymes are not showing a rising trend in the troponin. The troponin is not normal, which is not a surprise given that he was just in the hospital for a myocardial infarction 4 days ago. He did receive a dose of aspirin and Plavix here. He is currently chest pain- free. The patient will be admitted primarily due to acute on chronic renal failure. He does appear to be significantly dehydrated. Rehydration should be done at a fairly slow pace given the congestive heart failure issues with a recent myocardial infarction. A Matthew catheter has been placed to better bypass any obstructive complications. He does have a significant urinary tract infection and has been started on a dose of cefepime. Urine is being cultured. He does not appear septic. Family is in agreement with admission for above reasons. the patient is of a very advanced age and does have a correlating high 6 month mortality given his comorbidities. - Results/Orders Results/Orders: Laboratory Tests 02/21/19 02/21/19 02/21/19 11:04 11:04 11:04 WBC 6.4 RBC 3.04 L Hgb 9.6 L Hct 29.9 L MCV 98.3 H MCH 31.4 H MCHC 31.9 L RDW 16.6 H Plt Count 168 MPV 9.4 Absolute Neuts (auto) 4.90 Absolute Lymphs (auto) 0.70 L Absolute Monos (auto) 0.60 Absolute Eos (auto) 0.20 Absolute Basos (auto) 0.00 Neutrophils % 76.3 Lymphocytes % 11.3 L Monocytes % 9.3 H Eosinophils % 2.5 Basophils % 0.6 PT 10.3 INR 1.03 PTT (SP) 28.3 Sodium 135 Potassium 4.5 Chloride 104 Carbon Dioxide 20 L Anion Gap 15.5 BUN 55 H Creatinine 3.82 H BUN/Creatinine Ratio 14.4 Random Glucose 221 H D Serum Osmolality 292.0 Lactic Acid Calcium 8.9 Magnesium 1.7 L Total Bilirubin 0.4 AST 49 H D ALT 15 Alkaline Phosphatase 60 Creatine Kinase 281 H* CK-MB (CK-2) 21.1 H* CK-MB (CK-2) % 7.51 H Troponin I 10.02 H* B-Natriuretic Peptide 3950.0 H* Serum Total Protein 6.5 Albumin 3.2 Globulin 3.3 Albumin/Globulin Ratio 1.0 L TSH 2.90 Urine Color Urine Appearance Urine pH Ur Specific [place] Urine Protein Urine Glucose (UA) Urine Ketones Urine Blood Urine Nitrite Urine Bilirubin Urine Urobilinogen Ur Leukocyte Esterase Urine RBC Urine WBC Ur Epithelial Cells Urine Bacteria 02/21/19 02/21/19 02/21/19 11:04 11:20 13:42 WBC RBC Hgb Hct MCV MCH MCHC RDW Plt Count MPV Absolute Neuts (auto) Absolute Lymphs (auto) Absolute Monos (auto) Absolute Eos (auto) Absolute Basos (auto) Neutrophils % Lymphocytes % Monocytes % Eosinophils % Basophils % PT INR PTT (SP) Sodium Potassium Chloride Carbon Dioxide Anion Gap BUN Creatinine BUN/Creatinine Ratio Random Glucose Serum Osmolality Lactic Acid 1.7 Calcium Magnesium Total Bilirubin AST ALT Alkaline Phosphatase Creatine Kinase 249 H* CK-MB (CK-2) 18.6 H* CK-MB (CK-2) % 7.47 H Troponin I 8.81 H* B-Natriuretic Peptide Serum Total Protein Albumin Globulin Albumin/Globulin Ratio TSH Urine Color Yellow Urine Appearance Cloudy Urine pH 6.0 Ur Specific [place] 1.020 Urine Protein 100 H Urine Glucose (UA) Negative Urine Ketones Negative Urine Blood Small H Urine Nitrite Negative Urine Bilirubin Negative Urine Urobilinogen 0.2 Ur Leukocyte Esterase Large H Urine RBC 3-5 H Urine WBC Tntc H Ur Epithelial Cells 0 Urine Bacteria 3+ H EKG shows inferior Q-wave in lead 3. Flipped T wave in lead 3. Mild left atrial dilation. This is consistent with the EKG from February 18. Normal sinus rhythm 80 bpm. Mild left axis deviation. Poor R-wave progression. Borderline QT interval. No definitive ST segment elevation. Nonspecific T-wave changes Chest x-ray shows chronic findings only. No evidence of fluid overload or pneumonia. - EKG/XRAY/CT CT Ordered: Yes Departure - Departure Clinical Impression: Acute renal failure Qualifiers: Acute renal failure type: unspecified Qualified Code(s): N17.9 - Acute kidney failure, unspecified UTI (urinary tract infection) Qualifiers: Urinary tract infection type: acute cystitis Hematuria presence: without hematuria Qualified Code(s): N30.00 - Acute cystitis without hematuria Carpal tunnel syndrome Qualifiers: Laterality: left Qualified Code(s): G56.02 - Carpal tunnel syndrome, left upper limb Disposition: Admit Patient Condition: Poor Departure Forms: ED Discharge - Pt. Copy, Patient Portal Self Enrollment Referrals: Girish Sabillon MD [Primary Care Provider] - 1-2 Weeks Home Medications: Ambulatory Orders Dorzolamide HCl-Timolol Maleat [Dorzolamide HCl/Timolol M 22.3-6.8 mg/ml] 1 drop OP DAILY 01/20/15 Levothyroxine Sodium 75 mcg PO DAILY 01/20/15 Omeprazole 20 mg PO DAILY 01/20/15 Sodium Bicarbonate Tab 1,600 mg PO TID 01/20/15 Travoprost [Travatan Z] 1 drop OP BEDTIME 01/20/15 Allopurinol 300 ea PO DAILY 12/24/18 Diltiazem HCl Coated Beads [Cartia Xt] 180 mg PO DAILY 12/24/18 Ibuprofen [Advil] 200 mg PO PRN PRN 12/24/18 Propylene Glycol (Ophth) [Systane Complete] 0.6 % OP DAILY 12/24/18 Telmisartan-Hydrochlorothiazid [Telmisartan/Hydrochloroth 80-12.5 mg] 1 tab PO DAILY 12/24/18 Carvedilol [Coreg] 3.125 mg PO BID 02/21/19 Clopidogrel Bisulfate [Plavix] 75 mg PO QD 02/21/19 Lisinopril 5 mg PO DAILY 02/21/19 Rosuvastatin Calcium [Crestor] 20 mg PO BEDTIME 02/21/19 Decision To Admit - Decistion To Admit Decision to Admit Reason: Medical Nature Decision to Admit Date: 02/21/19 Decision to Admit Time: 15:23
--- NOTE | 2019-02-21 15:31 | HP ---
SUPERVISING PHYSICIAN: Dutch Villareal M.D. CHIEF COMPLAINT: Numbness to left hand as well as some mild shortness of breath. HISTORY OF PRESENT ILLNESS: This is an 88 year-old male patient who came to the Emergency Room today with his family secondary to feeling somewhat short of breath as well as some chest pressure. He also had some numbness in his left hand. He was actually sent to [place] on Monday and had a non-ST segment elevation myocardial infarction. He also has a significant history of chronic renal failure. He sees Dr. Edward. His baseline creatinine is about 2.5. When he had his non-ST segment elevation myocardial infarction at [facility] there were no invasive procedures done. It was decided to treat him medically. He was stared on Plavix and aspirin. His main complaints on his hand where he was tingling in the first 3 digits of his left hand. There was no real numbness. His capillary refill was within normal limits. The Emergency Room doctor felt that he had some carpel tunnel-like syndrome. He also had difficulty voiding in the Emergency Room and he does self catheterize twice a day due to an enlarged prostate. They placed a catheter and he had about 100 mL of dark urine out. His initial vital signs were temperature 97.9, heart rate 90, blood pressure 118/72, respiratory rate 18, O2 saturation 97%. Lab was done and his WBCs were 6,500 with hemoglobin 9.6, hematocrit 29.9. Electrolytes were basically within normal limits. BUN 55, creatinine 3.82, glucose 221. Lactic acid was 1.7, magnesium was slightly low at 1.7. AST was high at 49. Creatinine kinase was 281, troponin was 10.02 and BNP was 3,950. TSH was 2.9. Urinalysis showed 100 urine protein, small urine blood, large amount of urine leukocyte esterase, 3 to 5 urine RBCs, too numerous to count urine WBCs and 3+ urine bacteria. Urine culture was ordered. Chest x-ray showed chronic parenchymal fibrosis observed. There is no acute cardiopulmonary pathology. Abdomen and pelvis CT shows: 1. Small and atrophied left kidney. No hydronephrosis or perinephric fluid collection bilaterally. 2. Colonic diverticulosis with no acute inflammation. 3. 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 4. Infrarenal abdominal aortic aneurysm measuring up to 4.7 cm. 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 Recommend followup every 6 months and vascular consultation. In the Emergency Room, he was given some fluids as well as some Plavix and Cefepime. Even though his BNP was quite elevated, there were no signs or symptoms of acute heart failure. I was called for hospital admission. PAST MEDICAL HISTORY: 1. Glaucoma. 2. Gout. 3. Hypertension. 4. Chronic kidney disease stage 4. 5. Chronic prostatitis with benign prostatic hypertrophy. 6. Macular degeneration. 7. Hypothyroidism. 8. Recent myocardial infarction to be medically managed. PAST SURGICAL HISTORY: 1. Tonsillectomy and adenoidectomy. 2. Hernia repair. 3. Hemorrhoidectomy. 4. Cataract surgery. 5. Right shoulder surgery. OUTPATIENT MEDICATIONS: 1. Ibuprofen. 2. Allopurinol. 3. Carvedilol. 4. Plavix. 5. Diltiazem. 6. Dorzolamide. 7. Timolol maleate eye drops. 8. Levothyroxine. 9. Lisinopril. 10. Omeprazole. 11. Propylene glycol ophthalmic. 12. Crestor. 13. Sodium bicarbonate. 14. Telmisartan/Hydrochlorothiazide. 15. Travoprost. ALLERGIES: NO KNOWN DRUG ALLERGIES. FAMILY HISTORY: Noncontributory. SOCIAL HISTORY: He lives in [place]. He is retired. He quit smoking cigarettes in 1979. He drinks alcohol on a social basis. REVIEW OF SYSTEMS: GENERAL: Negative for fever, fatigue or weight changes. HEENT: Negative for sinus symptoms, ear pain, vision changes or sore throat. RESPIRATORY: Positive for shortness of breath. Negative for wheezing or coughing. CARDIAC: Mild chest pressure. Negative for palpitations or tachycardia. GASTROINTESTINAL: Negative for nausea, vomiting, diarrhea or constipation. GENITOURINARY: Negative for hematuria, dysuria or polyuria. MUSCULOSKELETAL: Negative for arthralgias, myalgias. SKIN: Negative for lesions or rashes. NEUROLOGIC: Positive for left hand pain with some numbness. Negative for headaches or seizures. PHYSICAL EXAMINATION: VITAL SIGNS: Heart rate 80, blood pressure 112/68, respiratory rate 16, O2 saturation 100% on room air. GENERAL: This is an 88 year-old male patient who is lying in his hospital bed. He is in no acute distress. HEENT: Normocephalic, atraumatic. Pupils are equal and reactive. Oropharynx is clear. NECK: Supple without mass. There is no discernible jugular venous distention. RESPIRATORY: Essentially clear to auscultation bilaterally. There are no crackles or rales. No rhonchi. No accessory muscles in use. CARDIOVASCULAR: Regular rate and rhythm. GASTROINTESTINAL: Abdomen is soft, nondistended, nontender. Bowel sounds are positive. EXTREMITIES: No cyanosis, clubbing or edema. NEUROLOGIC: Awake, alert and oriented times three. Cranial nerves II-XII are grossly intact as tested. SKIN: Warm and dry. LABORATORY: Labs and films are as per the history of present illness with the exception fo his second troponin was 8.81. ASSESSMENT: 1. Acute on chronic kidney disease. Baseline creatinine is 2.5, today it is 3.82. 2. Shortness of breath with some mild chest discomfort. He has had a recent non-ST segment elevation myocardial infarction and is planning on medical management. He does have an elevated troponin of 10. 3. Elevated BNP of almost 4,000 without evidence of any congestive heart failure exacerbation. 4. Urinary tract infection. 5. History of benign prostatic hypertrophy and chronic prostatitis. He does have to straight catheterize twice daily. 6. Hypertension. 7. Hypothyroidism on supplementation. 8. Glaucoma. PLAN: We will place the patient in observation. I will give him 1 liter of dextrose with sodium bicarb and will recheck his labs in the morning. He is a DNR but we will monitor him closely for chest pain. He will have his home medications restarted and will continue on the Cefepime. Will monitor his urine cultures as they become available. He has had no complaints of shortness of breath or chest pain since admitting to the hospital, but we will monitor him closely and follow as needed. #[id number] [facility]
[2019-02-21] MEDS ORDERED: MAGNESIUM SULFATE PREMIX 2GM 2 GM in PREMIX BAG 1 BAG IVPB ONE (15:57)
[2019-02-21] MEDS ORDERED: ONDANSETRON INJ 4 MG/2 ML VIAL IV PRN (15:58)
[2019-02-21] MEDS ORDERED: ACETAMINOPHEN 325 MG TAB PO PRN (15:58)
[2019-02-21] MEDS ORDERED: SODIUM CHLORIDE 0.9% (FLUSH) 10 ML SYG IV PRN (15:58)
[2019-02-21] MEDS ORDERED: SODIUM BICARBONATE SYRINGE 75 MEQ in DEXTROSE 5% 1000ML 1,000 ML IV ONE (16:03)
[2019-02-21] MEDS ORDERED: MAGNESIUM SULFATE PREMIX 2GM 50 ML IVPB ONE (16:23)
[2019-02-21] MEDS ORDERED: SODIUM BICARBONATE VIAL 50 MEQ/50 ML VIAL ONE (16:38)
[2019-02-21] MEDS ORDERED: DEX 5% W/NACL 0.9% 1000ML 1,000 ML IVS ONE (16:38)
[2019-02-21] MEDS: IV SET AND CAP CHANGE INJ INJ SCH (17:42)
[2019-02-21] MEDS ORDERED: SODIUM BICARBONATE 650 MG TAB ONE (20:41)
[2019-02-21] MEDS ORDERED: LEVOTHYROXINE SODIUM 0.075 MG TAB ONE (20:42)
[2019-02-21] MEDS: CARVEDILOL 3.125 MG TAB PO SCH (20:55)
[2019-02-21] MEDS: SODIUM BICARBONATE 650 MG PO SCH (20:56)
[2019-02-21] MEDS: SODIUM CHLORIDE 0.9% (FLUSH) 10 ML SYG IV SCH (20:56)
[2019-02-21] MEDS: NON-FORMULARY MEDICATION 1 EA MIS (Travoprost [Travatan Z] 1 DROP) OP SCH (20:57)
[2019-02-21] MEDS ORDERED: NON-FORMULARY MEDICATION 1 EA MIS (Rosuvastatin Calcium [Crestor] 20 MG) PO SCH (21:00)
[2019-02-22] MEDS: CEFEPIME 1 GM in SODIUM CHLORIDE 0.9% 50ML 50 ML IVPB SCH ×3 (00:31→23:39)
[2019-02-22] MEDS ORDERED: LEVOTHYROXINE SODIUM 75 MCG PO SCH (06:30)
[2019-02-22] MEDS ORDERED: SODIUM BICARBONATE 650 MG TAB ONE (08:58)
[2019-02-22] MEDS ORDERED: CARVEDILOL 3.125 MG TAB ONE (08:58)
[2019-02-22] MEDS ORDERED: diltiaZEM HCL CD 180 MG CAP ONE (08:58)
[2019-02-22] MEDS ORDERED: LISINOPRIL 5 MG TAB ONE (08:59)
[2019-02-22] MEDS: PROPYLENE GLYCOL 0.6% OP SCH (09:07)
[2019-02-22] MEDS: SODIUM BICARBONATE 650 MG PO SCH (09:07)
[2019-02-22] MEDS: diltiaZEM HCL CD 180 MG CAP PO SCH (09:07)
[2019-02-22] MEDS: CARVEDILOL 3.125 MG TAB PO SCH ×2 (09:07→20:57)
[2019-02-22] MEDS: SODIUM CHLORIDE 0.9% (FLUSH) 10 ML SYG IV SCH ×2 (09:07→20:57)
[2019-02-22] MEDS: LISINOPRIL 5 MG TAB PO SCH (09:07)
[2019-02-22] MEDS: OMEPRAZOLE CAP 20 MG CAP PO SCH (09:07)
[2019-02-22] MEDS: [UNRECOGNIZED DRUG - OTHER] OP SCH (09:07)
[2019-02-22] MEDS: CLOPIDOGREL 75 MG TAB PO SCH (09:07)
[2019-02-22] MEDS: TELMISARTAN HYDROCHLOROTHIAZID PO SCH (09:08)
[2019-02-22] MEDS: [UNRECOGNIZED DRUG - OTHER] PO SCH (09:08)
[2019-02-22] MEDS: SODIUM BICARBONATE 650 MG TAB PO SCH ×3 (09:20→20:59)
[2019-02-22] MEDS: ALLOPURINOL 300 MG TAB PO SCH (10:46)
[2019-02-22] MEDS ORDERED: CEFEPIME 2 GM VIAL ONE ×2 (13:13→20:04)
[2019-02-22] MEDS ORDERED: SODIUM CHLORIDE 0.9% 50ML 50 ML ONE ×2 (13:13→20:04)
[2019-02-22] MEDS ORDERED: LEVOTHYROXINE SODIUM 0.075 MG TAB ONE (20:03)
[2019-02-22] MEDS: ATORVASTATIN 20 MG TAB PO SCH (20:57)
[2019-02-22] MEDS: NON-FORMULARY MEDICATION 1 EA MIS (Travoprost [Travatan Z] 1 DROP) OP SCH (20:58)
[2019-02-22] MEDS ORDERED: SODIUM CHLORIDE 0.45% 1000ML 1,000 ML IVS PRN (21:35)
[2019-02-23] MEDS: LEVOTHYROXINE SODIUM 0.075 MG TAB PO SCH (06:05)
[2019-02-23] MEDS: OMEPRAZOLE CAP 20 MG CAP PO SCH (06:05)
[2019-02-23] MEDS ORDERED: CEFEPIME 2 GM VIAL ONE ×2 (07:58→19:11)
[2019-02-23] MEDS ORDERED: SODIUM CHLORIDE 0.9% 50ML 50 ML ONE ×2 (07:58→19:11)
[2019-02-23] MEDS ORDERED: SODIUM CHLORIDE 0.9% 500ML 500 ML IVS ONE (09:09)
[2019-02-23] MEDS: LISINOPRIL 5 MG TAB PO SCH (09:59)
[2019-02-23] MEDS: SODIUM BICARBONATE 650 MG TAB PO SCH ×3 (09:59→20:25)
[2019-02-23] MEDS: diltiaZEM HCL CD 180 MG CAP PO SCH (09:59)
[2019-02-23] MEDS: CARVEDILOL 3.125 MG TAB PO SCH (10:00)
[2019-02-23] MEDS: ALLOPURINOL 300 MG TAB PO SCH (10:00)
[2019-02-23] MEDS: [UNRECOGNIZED DRUG - OTHER] OP SCH (10:00)
[2019-02-23] MEDS: CLOPIDOGREL 75 MG TAB PO SCH (10:01)
[2019-02-23] MEDS: SODIUM CHLORIDE 0.9% (FLUSH) 10 ML SYG IV SCH ×2 (10:01→20:51)
[2019-02-23] MEDS: PROPYLENE GLYCOL 0.6% OP SCH (10:02)
--- NOTE | 2019-02-23 11:31 | PN ---
DATE: 02/22/19 SUPERVISING PHYSICIAN: Dutch Villareal MD SUBJECTIVE: The patient is denying he had any chest pain or shortness of breath. He says he feels pretty well overall. OBJECTIVE: VITAL SIGNS: Temperature 98.1, pulse 64, blood pressure 105/73, respirations 16, oxygen saturation 100% on one liter nasal cannula. I&O: Negative balance of 930, weight 69.9 kg. GENERAL: The patient is resting comfortably, appears to be in no acute distress. CHEST: Lungs sounds clear to auscultation with no notable rhonchi, rales, or wheezes. HEART: Regular rate and rhythm. ABDOMEN: Soft, non-tender, positive bowel sounds. EXTREMITIES: Without edema. NEUROLOGIC: He is alert and oriented x 3. LABORATORY: White cont 5,300, hemoglobin down to 8.1, hematocrit 45.2 with a microcytic hypochromic presentation. Platelet count 139,000. Differential shows to be without a left shift. Coagulation studies showed normal PTT. Chemistries today show a slightly improved BUN of 50, creatinine down to 3.33. Other electrolytes within normal limits. Liver functions within normal limits. Troponin down to 8.81 yesterday. MICROBIOLOGY: Urine culture still pending. RADIOLOGY: No additional radiographic studies. ASSESSMENT: 1. Acute on chronic kidney disease likely some prerenal azotemia with acute injury from dehydration showing improvement with fluids. 2. Recent non-ST segment elevation myocardial infarction,.medically managed with troponin returning to baseline with patient not currently complaining of any chest pain. 3. Elevated BNP without any obvious congestive heart failure with exacerbation. 4. Urinary tract infection with history of self catheterization with cultures pending with a history as noted in #5. 5. History of benign prostatic hypertrophy and chronic prostatitis. He does have to straight catheterize twice daily. 6. Hypertension. 7. Hypothyroidism on supplementation. 8. Glaucoma. PLAN: Will continue with low-dose fluid today. I did talk with Dr. Edward and he agrees with current plan. He is on antibiotic coverage awaiting culture and sensitivity report with Cefepime being the choice of antibiotic until we get his culture back. We will go ahead and anticipate another 24 hours of hospitalization, hopefully if he is trending his creatinine and no longer has any chest pains, his troponin is showing trending back to baseline to levels, we can discharge later tomorrow or Monday. Until the, we will continue to monitor and treat as needed. #[id number] [facility] [place]
[2019-02-23] MEDS: TELMISARTAN HYDROCHLOROTHIAZID PO SCH (13:46)
[2019-02-23] MEDS: [UNRECOGNIZED DRUG - OTHER] PO SCH (13:46)
[2019-02-23] MEDS: CEFEPIME 1 GM in SODIUM CHLORIDE 0.9% 50ML 50 ML IVPB SCH ×2 (13:47→23:29)
[2019-02-23] MEDS ORDERED: LOSARTAN POTASSIUM 100 MG TAB PO SCH (16:00)
[2019-02-23] MEDS ORDERED: hydroCHLOROthiazide 12.5 MG CAP PO SCH (16:00)
[2019-02-23] MEDS ORDERED: SODIUM CHLORIDE 0.9% 250ML 250 ML IVS ONE (20:02)
[2019-02-23] MEDS: SODIUM CHLORIDE 0.9% 1000ML 1,000 ML IVS PRN (20:13)
[2019-02-23] MEDS: [UNRECOGNIZED DRUG - OTHER] TOP SCH (20:24)
[2019-02-23] MEDS: NON-FORMULARY MEDICATION 1 EA MIS (Travoprost [Travatan Z] 1 DROP) TOP SCH (20:25)
[2019-02-23] MEDS: ENOXAPARIN SODIUM 30 MG/0.3 ML SYG SUBCU SCH (20:25)
[2019-02-23] MEDS: ATORVASTATIN 20 MG TAB PO SCH (20:25)
--- NOTE | 2019-02-23 21:12 | PN ---
DATE: 02/23/19 SUPERVISING PHYSICIAN: Dutch Villareal M.D. SUBJECTIVE: The patient has had some low blood pressure overnight. I have had to hold his blood pressure medications. He is denying chest pain. Notes that he is a little bit short of breath but overall he feels like he is improving. OBJECTIVE: VITAL SIGNS: Temperature 98.1, pulse 58, blood pressure 91/54, respirations 18, satting 99% on 2 liters nasal cannula. His actual I's and O's are showing a negative balance of 140 with a weight of 70.6 kg. GENERAL: The patient is resting comfortably. Appears to be in no acute distress. CHEST: Sounds fairly clear throughout, just diminished towards the bases bilaterally. HEART: Regular rate and rhythm, showing to be bradycardia at times on the monitor. EXTREMITIES: Without any edema. NEUROLOGIC: He is alert and oriented times three. LABORATORY: H&H is up 8.9 to 27.6 respectively with chemistry showing sodium 133, BUN 52, creatinine is down to 316, troponin is showing continued trending down to baseline levels at 6.6 today. MICROBIOLOGY: Preliminary cultures show gram negative bacilli with final culture identification pending. No additional radiographic studies. ASSESSMENT: 1. Acute on chronic kidney disease likely some prerenal azotemia with acute injury from dehydration showing improvement with fluids. 2. Recent non-ST segment elevation myocardial infarction,.medically managed with troponin returning to baseline with patient not currently complaining of any chest pain with the patient showing some hypotension requiring further medication management. 3. Elevated BNP without any obvious congestive heart failure with exacerbation. 4. Urinary tract infection with history of self catheterization with cultures preliminary showing gram negative bacilli with a history of benign prostatic hypertrophy and chronic prostatitis. 5. History of benign prostatic hypertrophy and chronic prostatitis. He does have to straight catheterize twice daily. 6. History of hypertension although showing to be hypotensive. 7. Hypothyroidism on supplementation. 8. Glaucoma. PLAN: Will continue with fluids today. I have had to give him a few boluses of normal saline due to his low blood pressures. He does continue on antibiotic coverage for he gram negative bacilli and we are awaiting culture and sensitivity results on that. I am still having to further manage his medications in regard to his hypotension. He does continue on IV fluids for maintenance as this seems to be showing good improvement in his baseline creatinine levels which are trending to his baseline. Will continue to touch base as needed with Dr. Edward in regards to his creatinine and kidney function. I was hoping to be able to discharge today, but given that we are continuing to hold his home medications in regards to his blood pressure control and his hypotension given his co-morbidities and recent non-ST segment elevation myocardial infarction along with advanced age, will keep an additional 24 hours to further help manage his hemodynamic status. With that being said, will change his admission to a full admission and anticipate hopefully being able to discharge tomorrow. Until then will continue to monitor and treat as needed. #[id number] [facility]
[2019-02-24] MEDS: SODIUM CHLORIDE 0.9% 1000ML 1,000 ML IVS PRN (04:46)
[2019-02-24] MEDS: LEVOTHYROXINE SODIUM 0.075 MG TAB PO SCH (06:21)
[2019-02-24] MEDS: OMEPRAZOLE CAP 20 MG CAP PO SCH (06:21)
[2019-02-24] MEDS: ALLOPURINOL 300 MG TAB PO SCH (09:28)
[2019-02-24] MEDS: SODIUM BICARBONATE 650 MG TAB PO SCH ×3 (09:28→20:39)
[2019-02-24] MEDS: [UNRECOGNIZED DRUG - OTHER] TOP SCH ×2 (09:28→20:41)
[2019-02-24] MEDS: LISINOPRIL 5 MG TAB PO SCH (09:29)
[2019-02-24] MEDS: CLOPIDOGREL 75 MG TAB PO SCH (09:29)
[2019-02-24] MEDS: SODIUM CHLORIDE 0.9% (FLUSH) 10 ML SYG IV SCH ×2 (09:29→20:44)
[2019-02-24] MEDS: PROPYLENE GLYCOL TOP SCH (09:29)
[2019-02-24] MEDS ORDERED: SODIUM CHLORIDE 0.9% 50ML 50 ML ONE ×2 (13:33→19:04)
[2019-02-24] MEDS ORDERED: CEFEPIME 2 GM VIAL ONE ×2 (13:33→19:04)
[2019-02-24] MEDS: CEFEPIME 1 GM in SODIUM CHLORIDE 0.9% 50ML 50 ML IVPB SCH ×2 (13:40→23:46)
[2019-02-24] MEDS: IV SET AND CAP CHANGE INJ INJ SCH (17:26)
[2019-02-24] MEDS ORDERED: CARVEDILOL 3.125 MG TAB ONE ×2 (19:04→21:19)
--- NOTE | 2019-02-24 20:23 | PN ---
DATE: 02/24/19 SUPERVISING PHYSICIAN: Dutch Villareal M.D. SUBJECTIVE: The patient has not had any chest pains overnight. He has been up to the chair. Notes he has not had any shortness of breath. His blood pressure has been much better with some fluids. OBJECTIVE: VITAL SIGNS: Temperature 98.2, heart rate 61, blood pressure 113/68, respirations 16, satting 97% on room air. Weight is 70.6 kg. I's and O's are showing a positive balance of 800. GENERAL: The patient is resting comfortably. Appears to be in no acute distress. CHEST: Lung sounds were clear bilaterally, just diminished a little bit. HEART: Regular rate and rhythm. ABDOMEN: Soft, non-tender. Positive bowel sounds. EXTREMITIES: Without any edema. NEUROLOGIC: He is alert and oriented times three. LABORATORY: Chemistry showed an improving sodium at 133, carbon dioxide is a little low at 16 but his BUN is 51, creatinine 2.94 which is down from admission of initially 3.82. Calcium is 8.3. MICROBIOLOGY: Final culture results of the urine showed a Klebsiella ozaenae which was near pansensitive, just resistant to Ampicillin. RADIOLOGY: No radiographic studies today. ASSESSMENT: 1. Acute on chronic kidney disease likely some prerenal azotemia with acute injury from dehydration showing improvement with fluids. 2. Recent non-ST segment elevation myocardial infarction,.medically managed with troponin returning to baseline with patient not currently complaining of any chest pain with the patient showing some hypotension requiring further medication management. 3. Elevated BNP without any obvious congestive heart failure with exacerbation. 4. Urinary tract infection with history of self catheterization with cultures preliminary showing gram negative bacilli with a history of benign prostatic hypertrophy and chronic prostatitis. 5. History of benign prostatic hypertrophy and chronic prostatitis. He does have to straight catheterize twice daily. 6. History of hypertension although showing to be hypotensive. 7. Hypothyroidism on supplementation. 8. Glaucoma. PLAN: Will saline lock him today and resume his home medications. I did discuss lab findings on the creatinine with Dr. Edward as well as his medication regimen which included Telmisartan and Lisinopril. Based off Dr. Edward's suggestions that we stop one or the other and not give him both medications, will stop Lisinopril. He notes that his creatinine is returning to baseline levels. Hopefully we can discharge tomorrow as soon as we can ensure that we could get his medication started back and his troponin is still trending down to baseline levels. I did discuss with the family that at this point it would probably be best to complete a course of treatment with antibiotics orally and leave the Matthew catheter in until we can be seen in followup at which time the catheter could be removed instead of resuming his self catheterization. Until we can transition to outpatient management will continue to monitor and treat as needed. #[id number] MTDD
[2019-02-24] MEDS: ENOXAPARIN SODIUM 30 MG/0.3 ML SYG SUBCU SCH (20:40)
[2019-02-24] MEDS: ATORVASTATIN 20 MG TAB PO SCH (20:40)
[2019-02-24] MEDS: NON-FORMULARY MEDICATION 1 EA MIS (Travoprost [Travatan Z] 1 DROP) TOP SCH (20:41)
[2019-02-24] MEDS: CARVEDILOL 3.125 MG TAB PO SCH (21:36)
[2019-02-25] MEDS: OMEPRAZOLE CAP 20 MG CAP PO SCH (05:41)
[2019-02-25] MEDS: LEVOTHYROXINE SODIUM 0.075 MG TAB PO SCH (05:41)
[2019-02-25] MEDS ORDERED: BIFIDOBACTERIUM INFANTIS 4 MG CAP PO SCH (09:00)
[2019-02-25] MEDS ORDERED: CEFUROXIME AXETIL TAB 250 MG TAB PO SCH (09:00)
[2019-02-25] MEDS: PROPYLENE GLYCOL TOP SCH (09:16)
[2019-02-25] MEDS ORDERED: CARVEDILOL 3.125 MG TAB ONE (09:38)
[2019-02-25] MEDS ORDERED: diltiaZEM HCL CD 180 MG CAP ONE (09:38)
[2019-02-25] MEDS: CARVEDILOL 3.125 MG TAB PO SCH (09:44)
[2019-02-25] MEDS: diltiaZEM HCL CD 180 MG CAP PO SCH (09:44)
[2019-02-25] MEDS: [UNRECOGNIZED DRUG - OTHER] TOP SCH (09:44)
[2019-02-25] MEDS: CLOPIDOGREL 75 MG TAB PO SCH (09:45)
[2019-02-25] MEDS: SODIUM BICARBONATE 650 MG TAB PO SCH (09:45)
[2019-02-25] MEDS: ALLOPURINOL 300 MG TAB PO SCH (09:45)
[2019-02-25] MEDS: SODIUM CHLORIDE 0.9% (FLUSH) 10 ML SYG IV SCH (09:45)
[2019-02-25 11:13] VITALS: BP 132/78; TEMP 98; O2SAT 97
--- NOTE | 2019-03-05 09:38 | DS ---
SUPERVISING PHYSICIAN: Dutch Villareal MD ADMISSION DIAGNOSES: 1. Acute on chronic kidney disease. Baseline creatinine is 2.5, today it is 3.82. 2. Shortness of breath with some mild chest discomfort. He has had a recent non-ST segment elevation myocardial infarction and is planning on medical management. He does have an elevated troponin of 10. 3. Elevated BNP of almost 4,000 without evidence of any congestive heart failure exacerbation. 4. Urinary tract infection. 5. History of benign prostatic hypertrophy and chronic prostatitis. He does have to straight catheterize twice daily. 6. Hypertension. 7. Hypothyroidism on supplementation. 8. Glaucoma. DISCHARGE DIAGNOSES: 1. Acute on chronic kidney disease likely some prerenal azotemia with acute injury from dehydration showing improvement with fluids. 2. Recent non-ST segment elevation myocardial infarction,.medically managed with troponin returning to baseline with patient not currently complaining of any chest pain with the patient showing some hypotension requiring further medication management. 3. Elevated BNP without any obvious congestive heart failure with exacerbation. 4. Urinary tract infection with history of self catheterization with cultures secondary to a Klebsiella species that was near pansensitive with patient treated with Cefepime showing good response to treatment prior to discharge. 5. History of benign prostatic hypertrophy and chronic prostatitis. He does have to straight catheterize twice daily. 6. History of hypertension although showing to be hypotensive. 7. Hypothyroidism on supplementation. 8. Glaucoma. REASON FOR HOSPITALIZATION: This is an 88 year-old male patient who came to the Emergency Room today with his family secondary to feeling somewhat short of breath as well as some chest pressure. He also had some numbness in his left hand. He was actually sent to [place] on Monday and had a non-ST segment elevation myocardial infarction. He also has a significant history of chronic renal failure. He sees Dr. Edward. His baseline creatinine is about 2.5. When he had his non-ST segment elevation myocardial infarction at [facility] there were no invasive procedures done. It was decided to treat him medically. He was stared on Plavix and aspirin. His main complaints on his hand where he was tingling in the first 3 digits of his left hand. There was no real numbness. His capillary refill was within normal limits. The Emergency Room doctor felt that he had some carpel tunnel-like syndrome. He also had difficulty voiding in the Emergency Room and he does self catheterize twice a day due to an enlarged prostate. They placed a catheter and he had about 100 mL of dark urine out. His initial vital signs were temperature 97.9, heart rate 90, blood pressure 118/72, respiratory rate 18, O2 saturation 97%. Lab was done and his WBCs were 6,500 with hemoglobin 9.6, hematocrit 29.9. Electrolytes were basically within normal limits. BUN 55, creatinine 3.82, glucose 221. Lactic acid was 1.7, magnesium was slightly low at 1.7. AST was high at 49. Creatinine kinase was 281, troponin was 10.02 and BNP was 3,950. TSH was 2.9. Urinalysis showed 100 urine protein, small urine blood, large amount of urine leukocyte esterase, 3 to 5 urine RBCs, too numerous to count urine WBCs and 3+ urine bacteria. Urine culture was ordered. Chest x-ray showed chronic parenchymal fibrosis observed. There is no acute cardiopulmonary pathology. LABORATORY STIES: White count on admission was 6,400. Hemoglobin initially was 9.6, hematocrit 29.9. Prior to discharge, hemoglobin was 8.9, hematocrit 27.6. Platelet count 139,000. Differential showed to be without a left shift. Coagulation studies showed normal PT/PTT. On discharge, his sodium was 133, BUN 52, creatinine 2.82. Initial creatinine on admission was 3.33 and he was near his baseline levels prior to discharge. Calcium 8.7. He did have a troponin initially on admission was 10.0 but was returning to baseline at 6.64 from previous hospitalization, not on current hospitalization. Urinalysis did show a urinary tract infection with too numerous to count WBCs, 3 to 5 RBCs and 3+ bacteria. Dipstick showed 100 of protein, small amount of blood, large amount of leukoesterase. MICROBIOLOGY: Final urine culture with Klebsiella species as noted above. HOSPITAL COURSE: Mr. Dumont was admitted for acute kidney injury and some shortness of breath and exacerbation of congestive heart failure. He was treated with fluids, antibiotics with a urinary tract infection with final culture results showing a Klebsiella Oxyrane that was near pansensitive, resistant to ampicillin. He clinically showed good improvement, was no longer having any chest pain, no shortness of breath and was felt stable enough to continue with outpatient management. PLAN: Mr. Dumont was discharged on 02/25/19 with instructions to followup with Dr. Sabillon on 03/01/19. He was to continue with urinary catheter in place with a urine bag until he is seen in followup. He is to resume his medications as instructed and return to the hospital as needed. Discharge Diet: Regular as tolerated. Activity as tolerated. DISCHARGE MEDICATIONS: 1. Align 4 mg daily. 2. Ceftin 250 mg daily for 5 days, no refills. DISPOSITION: The patient was discharged home to family members. CONDITION ON DISCHARGE: Stable and improved. #[id number] [facility]
== END 2019-02-25 13:30 | disposition home or self-care (01) | DRG 683 ==
LOC: ER 10:30 → MS 15:30 → OBSVTOIN 02-23 19:38
PROVIDERS: ADMIT Nurse Practitioner Acute Care; ATTEND Nurse Practitioner Family
DX: N17.9 Acute kidney failure, unspecified (principal); N30.00 Acute cystitis without hematuria; Z16.11 Resistance to penicillins; G56.02 Carpal tunnel syndrome, left upper limb; I71.4 Abdominal aortic aneurysm, without rupture; N40.1 Benign prostatic hyperplasia with lower urinary tract symptoms; N32.0 Bladder-neck obstruction; M10.9 Gout, unspecified; I12.9 Hypertensive chronic kidney disease with stage 1 through stage 4 chronic kidney disease, or unspecified chronic kidney disease; N18.4 Chronic kidney disease, stage 4 (severe); E03.9 Hypothyroidism, unspecified; E86.0 Dehydration; I95.9 Hypotension, unspecified; H35.30 Unspecified macular degeneration; H40.9 Unspecified glaucoma; B96.1 Klebsiella pneumoniae [K. pneumoniae] as the cause of diseases classified elsewhere; I25.2 Old myocardial infarction; Z79.02 Long term (current) use of antithrombotics/antiplatelets; Z87.891 Personal history of nicotine dependence

== ENCOUNTER 2019-02-27 19:07 | Observation (INO) | payer MEDICARE, OTHER ==
--- NOTE | 2019-02-27 19:46 | ED.PDOC ---
History of Present Illness - General Chief Complaint: Respiratory Problem Stated Complaint: increased shortness of breath Time Seen by Provider: 02/27/19 19:34 - History of Present Illness Initial Comments: Son in law primarily giving history. Pt here with SOB. No CP. Mild cough. No fever. Pt was admitted 8 days ago, spent part of that time at [facility]. Son in law says that pt has CKD and was told he had a "mild heart attack." Family also says that acute on chronic kidney injury was also related to urinary retention, but after catheter placement returned to baseline, which he thinks is a Cr of ~3.2. Family says sitting up his symptoms seem to have resolved, and is somewhat concerned that pt does not have a hospital bed at home. Pt does not have oxygen at home. Timing/Duration: 1-3 hours Severity: moderate Activities at Onset: none Possible Cause: other - History of lung, heart and kidney issues Improving Factors: other - Sitting up Worsening Factors: other - lying flat Associated Symptoms: denies symptoms Allergies/Adverse Reactions: Allergies NO KNOWN ALLERGY Allergy (Verified 02/21/19 10:48) Home Medications: Ambulatory Orders Dorzolamide HCl-Timolol Maleat [Dorzolamide HCl/Timolol M 22.3-6.8 mg/ml] 1 drop OP DAILY 01/20/15 Levothyroxine Sodium 75 mcg PO DAILY 01/20/15 Omeprazole 20 mg PO DAILY 01/20/15 Sodium Bicarbonate Tab 650 mg PO TID 01/20/15 Travoprost [Travatan Z] 1 drop OP BEDTIME 01/20/15 Allopurinol 300 ea PO DAILY 12/24/18 Diltiazem HCl Coated Beads [Cartia Xt] 180 mg PO DAILY 12/24/18 Propylene Glycol (Ophth) [Systane Complete] 0.6 % OP DAILY 12/24/18 Telmisartan-Hydrochlorothiazid [Telmisartan/Hydrochloroth 80-12.5 mg] 1 tab PO DAILY 12/24/18 Carvedilol [Coreg] 3.125 mg PO BID 02/21/19 Clopidogrel Bisulfate [Plavix] 75 mg PO QD 02/21/19 Rosuvastatin Calcium [Crestor] 20 mg PO BEDTIME 02/21/19 Bifidobacterium Infantis [Align] 4 mg PO DAILY cap 02/25/19 Cefuroxime Axetil 250 mg PO DAILY 5 Days #5 tablet 02/25/19 Review of Systems - Review of Systems Constitutional: States: malaise EENTM: States: no symptoms reported Respiratory: States: orthopnea, short of breath. Denies: cough, wheezing Cardiology: States: no symptoms reported. Denies: chest pain, palpitations, syncope Gastrointestinal/Abdominal: States: no symptoms reported. 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 Hx Congestive Heart Failure: No Hx Pacemaker: No Hx Hypertension: Yes Hx Thyroid Disease: Yes Hx Diabetes: No Hx Gastroesophageal Reflux: Yes Hx Renal Disease: Yes Hx Cancer: Yes - skin only Hx Hepatitis C: No Hx MRSA: No - Vaccination History Hx Tetanus, Diphtheria Vaccination: No Hx Influenza Vaccination: Yes Hx Pneumococcal Vaccination: Yes - Social History Hx Tobacco Use: Yes Hx Alcohol Use: Yes - occ beer Hx Substance Use: No Hx Substance Use Treatment: No Hx Depression: No Hx Physical Abuse: No Hx Emotional Abuse: No - Female History Patient : No Family Medical History - Family History Mother Living Status: Hx Cardiac Disease: Yes Physical Exam - Physical Exam General Appearance: No apparent distress Eyes, Ears, Nose, Throat Exam: normal ENT inspection Neck: full range of motion, supple Respiratory: no respiratory distress, crackles, wheezing Cardiovascular/Chest: normal peripheral pulses, regular rate, rhythm, no edema Gastrointestinal/Abdominal: normal bowel sounds, non tender, soft, no organomegaly Extremity: non-tender, no pedal edema Neurologic: alert, normal mood/affect, oriented x 3 Skin Exam: normal color Progress - Progress Progress: 02/27/19 21:52 D/w Johanna Larson. She will observe overnight and will have social work consult in the AM. Some discussion of NH placement, and considering pt had recent full admit, he may be candidate for further assistance - EKG/XRAY/CT EKG: Sinus, nonspecific ST T wave Chg, Abnormal Q waves Comments: No ST elevations. Departure - Departure Clinical Impression: Shortness of breath, Chronic kidney failure, Elevated troponin Time of Disposition: 21:54 Disposition: Admit Patient Condition: Fair Departure Forms: ED Discharge - Pt. Copy, Patient Portal Self Enrollment Diet: resume usual diet, other Referrals: Girish Sabillon MD [Primary Care Provider] - 1-2 Weeks Home Medications: Ambulatory Orders Dorzolamide HCl-Timolol Maleat [Dorzolamide HCl/Timolol M 22.3-6.8 mg/ml] 1 drop OP DAILY 01/20/15 Levothyroxine Sodium 75 mcg PO DAILY 01/20/15 Omeprazole 20 mg PO DAILY 01/20/15 Sodium Bicarbonate Tab 650 mg PO TID 01/20/15 Travoprost [Travatan Z] 1 drop OP BEDTIME 01/20/15 Allopurinol 300 ea PO DAILY 12/24/18 Diltiazem HCl Coated Beads [Cartia Xt] 180 mg PO DAILY 12/24/18 Propylene Glycol (Ophth) [Systane Complete] 0.6 % OP DAILY 12/24/18 Telmisartan-Hydrochlorothiazid [Telmisartan/Hydrochloroth 80-12.5 mg] 1 tab PO DAILY 12/24/18 Carvedilol [Coreg] 3.125 mg PO BID 02/21/19 Clopidogrel Bisulfate [Plavix] 75 mg PO QD 02/21/19 Rosuvastatin Calcium [Crestor] 20 mg PO BEDTIME 02/21/19 Bifidobacterium Infantis [Align] 4 mg PO DAILY cap 02/25/19 Cefuroxime Axetil 250 mg PO DAILY 5 Days #5 tablet 02/25/19 Decision To Admit - Decistion To Admit Decision to Admit Date: 02/27/19 Decision to Admit Time: 21:55
--- NOTE | 2019-02-27 20:32 | RAD ---
EXAM DESCRIPTION: XR Chest, 1 View CLINICAL HISTORY: 88 years Male SOB TECHNIQUE: One view of the chest. COMPARISON: Radiograph dated 02/18/2019, abdominal CT dated 02/21/2019 FINDINGS: Again seen are increased reticular markings throughout the periphery of both lungs, consistent with pulmonary fibrosis. Stable scarring in the left lateral lung base. No new airspace infiltrate, pleural effusion, or pneumothorax. Stable cardiomediastinal silhouette with aortic atherosclerosis. IMPRESSION: Stable pulmonary fibrosis and left basilar scarring. Electronically signed by: Jess Lowe MD 02/27/2019 8:30 PM WINDOWS ADMINISTRATOR
--- NOTE | 2019-02-27 22:16 | HP ---
SUPERVISING PHYSICIAN: Girish Sabillon M.D. CHIEF COMPLAINT: Shortness of breath and weakness. HISTORY OF PRESENT ILLNESS: This is an 88 year-old male patient who had a non- ST segment elevation myocardial infarction about 2 weeks ago and was admitted to [facility]. He was then sent home and then came to our Emergency Room about 8 days. He was admitted for acute on chronic kidney injury related to urinary retention, a catheter was placed and he returned to baseline. Then he went to [facility] for further evaluation. He has just come home and today he came to the Emergency Room due to shortness of breath and extreme weakness. He has a difficult time getting his breath when he lies flat and does not have a hospital bed. He also does not have oxygen at home. In the Emergency Room, his initial vital signs were temperature 97.2, heart rate 69, blood pressure 152/93 with respirations 20 and O2 saturation 97%. Lab was drawn and his WBCs were 5.9 with hemoglobin 8.3 and hematocrit 25.4. There was no shift on his differential. Sodium was low at 130 with potassium 4.7, chloride 98, carbon dioxide is 20, BUN 64 and creatinine 3.45. Baseline creatinine is about 3. He had a troponin of 2.07 but he did recently have a non-ST segment elevation myocardial infarction. BNP was greater than 4,999. Chest x-ray showed stable pulmonary fibrosis and left basilar scarring. I was called for admission for observation due to his shortness of breath and extreme weakness. PAST MEDICAL HISTORY: 1. Glaucoma. 2. Gout. 3. Hypertension. 4. Chronic kidney disease stage 4. 5. Chronic prostatitis with benign prostatic hypertrophy. 6. Macular degeneration. 7. Hypothyroidism. 8. Recent myocardial infarction to be medically managed. PAST SURGICAL HISTORY: 1. Tonsillectomy and adenoidectomy. 2. Hernia repair. 3. Hemorrhoidectomy. 4. Cataract surgery. 5. Right shoulder surgery. OUTPATIENT MEDICATIONS: 1. Ibuprofen. 2. Allopurinol. 3. Carvedilol. 4. Plavix. 5. Diltiazem. 6. Dorzolamide. 7. Timolol maleate eye drops. 8. Levothyroxine. 9. Lisinopril. 10. Omeprazole. 11. Propylene glycol ophthalmic. 12. Crestor. 13. Sodium bicarbonate. 14. Telmisartan/Hydrochlorothiazide. 15. Travoprost. ALLERGIES: NO KNOWN DRUG ALLERGIES. FAMILY HISTORY: Noncontributory. SOCIAL HISTORY: He lives in [place]. He is retired. He quit smoking cigarettes in 1979. He drinks alcohol on a social basis. REVIEW OF SYSTEMS: GENERAL: Positive for fatigue. Negative for fever or weight changes. HEENT: Negative for sinus symptoms, ear pain, vision changes or sore throat. RESPIRATORY: Positive for shortness of breath. Negative for wheezing or coughing. CARDIAC: Negative for chest pain, palpitations or tachycardia. GASTROINTESTINAL: Negative for nausea, vomiting, diarrhea or constipation. GENITOURINARY: Negative for hematuria, dysuria or polyuria. MUSCULOSKELETAL: Negative for arthralgias, myalgias. SKIN: Negative for lesions or rashes. NEUROLOGIC: Positive for weakness. Negative for headache, dizziness or seizures. PHYSICAL EXAMINATION: VITAL SIGNS: Temperature 97.8, heart rate 68, blood pressure 120/83, respiratory rate 20, O2 saturation 92% on room air. GENERAL: This is an 88 year-old male patient who is lying in his hospital bed. He is in no acute distress, although he does have to sit up in bed or he becomes dyspneic. HEENT: Normocephalic, atraumatic. Pupils are equal and reactive. Oropharynx is clear. NECK: Supple without mass. There is no discernible jugular venous distention. RESPIRATORY: Essentially clear to auscultation bilaterally. He does have poor inspiratory effort. He does have to sit up to keep from becoming dyspneic. If he does lie flat he becomes slightly tachypneic. CARDIOVASCULAR: Regular rate and rhythm. GASTROINTESTINAL: Abdomen is soft, nondistended, nontender. Bowel sounds are positive. EXTREMITIES: No cyanosis, clubbing or edema. NEUROLOGIC: Awake, alert and oriented times three. Cranial nerves II-XII are grossly intact as tested. SKIN: Warm and dry. LABORATORY: Labs and films are as per the History of Present Illness. ASSESSMENT: 1. Progressive weakness with shortness of breath in a patient that has recently had a non-ST segment elevation myocardial infarction approximately 2 weeks ago. 2. Chronic kidney disease. His baseline creatinine is about 3. His admitting creatinine is 3.45. 3. Non-ST segment elevation myocardial infarction approximately 2 weeks ago with an elevated troponin of 2.07. 4. History of benign prostatic hypertrophy. He does have a chronic catheter. 5. Hypertension. 6. Hypothyroidism on supplementation. 7. Glaucoma. PLAN: The patient is placed in observation. At this point the family is trying to decide where he would be the safest, either at an assisted living or at a shelter. There is even some question that they may need to get a hospital bed. I will restart his home medications. He will be on deep venous thrombosis prophylaxis while in the hospital. At this point, will continue to monitor him closely and follow as needed. #[id number] [facility] HOSPITALJennyfer
[2019-02-27] MEDS ORDERED: ONDANSETRON INJ 4 MG/2 ML VIAL IV PRN (22:31)
[2019-02-27] MEDS ORDERED: SODIUM CHLORIDE 0.9% (FLUSH) 10 ML SYG IV PRN (22:31)
[2019-02-27] MEDS ORDERED: IV SET AND CAP CHANGE INJ INJ SCH (23:00)
[2019-02-28] MEDS: SODIUM CHLORIDE 0.9% (FLUSH) 10 ML SYG IV SCH ×2 (09:10→21:20)
[2019-02-28] MEDS ORDERED: [UNRECOGNIZED DRUG - OTHER] OP SCH (14:45)
[2019-02-28] MEDS ORDERED: SODIUM BICARBONATE 650 MG PO SCH (15:00)
[2019-02-28] MEDS: CEFUROXIME AXETIL TAB 250 MG TAB PO SCH (16:22)
[2019-02-28] MEDS: ALLOPURINOL 300 MG TAB PO SCH (16:22)
[2019-02-28] MEDS: CARVEDILOL 3.125 MG TAB PO SCH ×2 (16:22→21:20)
[2019-02-28] MEDS: diltiaZEM HCL CD 180 MG CAP PO SCH (16:22)
[2019-02-28] MEDS: CLOPIDOGREL 75 MG TAB PO SCH (16:22)
[2019-02-28] MEDS: PROPYLENE GLYCOL 0.6% OP SCH (18:10)
[2019-02-28] MEDS: TELMISARTAN HYDROCHLOROTHIAZID PO SCH (18:12)
[2019-02-28] MEDS: [UNRECOGNIZED DRUG - OTHER] PO SCH (18:12)
[2019-02-28] MEDS ORDERED: LEVOTHYROXINE SODIUM 0.075 MG TAB ONE (20:24)
[2019-02-28] MEDS ORDERED: ATORVASTATIN 20 MG TAB PO SCH (21:00)
[2019-02-28] MEDS ORDERED: NON-FORMULARY MEDICATION 1 EA MIS (Travoprost [Travatan Z] 1 DROP) OP SCH (21:00)
[2019-02-28] MEDS ORDERED: ENOXAPARIN SODIUM 40 MG/0.4 ML SYG SUBCU SCH (21:00)
[2019-02-28] MEDS ORDERED: NON-FORMULARY MEDICATION 1 EA MIS (Rosuvastatin Calcium [Crestor] 20 MG) PO SCH (21:00)
[2019-02-28] MEDS: SODIUM BICARBONATE 650 MG TAB PO SCH (21:20)
[2019-03-01] MEDS ORDERED: LEVOTHYROXINE SODIUM 0.075 MG TAB PO SCH (06:30)
[2019-03-01] MEDS ORDERED: LEVOTHYROXINE SODIUM 75 MCG PO SCH (06:30)
[2019-03-01] MEDS: diltiaZEM HCL CD 180 MG CAP PO SCH (08:27)
[2019-03-01] MEDS: CEFUROXIME AXETIL TAB 250 MG TAB PO SCH (08:28)
[2019-03-01] MEDS: CARVEDILOL 3.125 MG TAB PO SCH (08:28)
[2019-03-01] MEDS: CLOPIDOGREL 75 MG TAB PO SCH (08:28)
[2019-03-01] MEDS: SODIUM BICARBONATE 650 MG TAB PO SCH ×2 (08:28→15:40)
[2019-03-01] MEDS: ALLOPURINOL 300 MG TAB PO SCH (08:28)
[2019-03-01] MEDS: PROPYLENE GLYCOL 0.6% OP SCH (08:29)
[2019-03-01] MEDS: SODIUM CHLORIDE 0.9% (FLUSH) 10 ML SYG IV SCH (08:29)
[2019-03-01] MEDS: TELMISARTAN HYDROCHLOROTHIAZID PO SCH (08:33)
[2019-03-01] MEDS: [UNRECOGNIZED DRUG - OTHER] PO SCH (08:33)
[2019-03-01] MEDS ORDERED: BIFIDOBACTERIUM INFANTIS 4 MG CAP PO SCH (09:00)
--- NOTE | 2019-03-01 09:20 | PN ---
SUPERVISING PHYSICIAN: Girish Sabillon MD DATE: 02/28/19 SUBJECTIVE: The patient is sitting up in bed. He still requires sitting straight up in bed. Otherwise, he gets short of breath. Otherwise, he has no complaints of chest pain, nausea or vomiting. I discussed with his son-in-law and daughter and he will have an evaluation by [facility] tomorrow for admission there. Otherwise, they may decide to send him to [facility]. OBJECTIVE: VITAL SIGNS: Temperature 98.4. Heart rate 70. Blood pressure 124/86. Respiratory rate 18. O2 saturation 95% on 2 liters nasal cannula. RESPIRATORY: Essentially clear to auscultation bilaterally. CARDIAC: Regular rate and rhythm. NEUROLOGIC: Awake, alert and oriented times three. LABORATORY: There are no labs or films to report at this time. ASSESSMENT: 1. Progressive weakness with shortness of breath in a patient that has recently had a non-ST segment elevation myocardial infarction approximately 2 weeks ago. 2. Chronic kidney disease. His baseline creatinine is about 3. His admitting creatinine is 3.45. 3. Non-ST segment elevation myocardial infarction approximately 2 weeks ago with an elevated troponin of 2.07. 4. History of benign prostatic hypertrophy. He does have a chronic catheter. 5. Hypertension. 6. Hypothyroidism on supplementation. 7. Glaucoma. PLAN: We will continue present supportive care. Hemoglobin and hematocrit were down a little today, so I will check his H&H tomorrow. [facility] will be out to evaluate him in the morning. A decision will be made at that time for his discharge planning. Other than that, we will continue to monitor the patient closely and follow as needed. #[id number] MTDD
[2019-03-01 18:20] VITALS: BP 133/71; TEMP 97.5; O2SAT 94
[2019-03-01] MEDS ORDERED: ENOXAPARIN SODIUM 30 MG/0.3 ML SYG SUBCU SCH (21:00)
[2019-03-01] MEDS ORDERED: DORZOLAMIDE TIMOLOL LEFT_EYE SCH (21:00)
--- NOTE | 2019-03-10 12:17 | DS ---
SUPERVISING PHYSICIAN: Girish Sabillon M.D. ADMISSION DIAGNOSIS: 1. Progressive weakness with shortness of breath in a patient that has recently had a non-ST segment elevation myocardial infarction approximately 2 weeks ago. 2. Chronic kidney disease. His baseline creatinine is about 3. His admitting creatinine is 3.45. 3. Non-ST segment elevation myocardial infarction approximately 2 weeks ago with an elevated troponin of 2.07. 4. History of benign prostatic hypertrophy. He does have a chronic catheter. 5. Hypertension. 6. Hypothyroidism on supplementation. 7. Glaucoma. DISCHARGE DIAGNOSIS: 1. Progressive weakness and shortness of breath with a history of non-ST segment elevation within the last month. 2. Chronic kidney disease with the patient being at baseline levels on discharge. 3. History of recent non-ST segment elevation myocardial infarction with troponin returning to baseline with no reported symptoms on current admission. 4. History of benign prostatic hypertrophy with chronic Matthew. 5. Hypertension, stable. 6. Hypothyroidism on supplementation. 7. Glaucoma on treatment. REASON FOR HOSPITALIZATION: This is an 88 year-old male patient who had a non- ST segment elevation myocardial infarction about 2 weeks ago and was admitted to [facility]. He was then sent home and then came to our Emergency Room about 8 days. He was admitted for acute on chronic kidney injury related to urinary retention, a catheter was placed and he returned to baseline. Then he went to [facility] for further evaluation. He has just come home and today he came to the Emergency Room due to shortness of breath and extreme weakness. He has a difficult time getting his breath when he lies flat and does not have a hospital bed. He also does not have oxygen at home. In the Emergency Room, his initial vital signs were temperature 97.2, heart rate 69, blood pressure 152/93 with respirations 20 and O2 saturation 97%. Lab was drawn and his WBCs were 5.9 with hemoglobin 8.3 and hematocrit 25.4. There was no shift on his differential. Sodium was low at 130 with potassium 4.7, chloride 98, carbon dioxide is 20, BUN 64 and creatinine 3.45. Baseline creatinine is about 3. He had a troponin of 2.07 but he did recently have a non-ST segment elevation myocardial infarction. BNP was greater than 4,999. Chest x-ray showed stable pulmonary fibrosis and left basilar scarring. The patient was placed in observation due to shortness of breath and extreme weakness in stable condition. LABORATORY: H&H on discharge was 8.1 and 25.0. Differential was without a left shift. White count was 5,200. Chemistries showed sodium 130 with creatinine 3.45, BUN 64. BNP was greater than 4999 and troponin was 2.07. EKG showed sinus rhythm with a first degree AV block with no acute ST elevation or T wave inversion to indicate ischemia. RADIOLOGY: Chest x-ray shows stable pulmonary fibrosis and left basilar scarring. HOSPITAL COURSE: Mr. Dumont was admitted on 02/27/19 due to his weakness, shortness of breath and recent hospitalization. He was evaluated by [facility] but the family opted to send the patient home. His H&H was showing stable. He was not reporting any chest pains. No acute changes on EKGs were noted. Labs were stable. He was felt stable enough to continue with outpatient management. PLAN: Mr. Dumont was discharged on 03/01/19 with home health to home. He is to wear oxygen as directed via 2 liters nasal cannula. He is to resume his medications as instructed and to followup with Dr. Sabillon as directed, and to return to the Emergency Room as needed for any concerning symptoms. No new medications on discharge were prescribed. Diet on discharge was low salt, low fat . Activity is to increase his activity as tolerated. Condition on discharge was stable and improved. DISPOSITION: The patient was discharged home. #[id number] MTDD
== END 2019-03-01 18:40 | disposition home health service (06) ==
LOC: ER 19:07 → MS 22:15
PROVIDERS: ADMIT Nurse Practitioner Acute Care; ATTEND Nurse Practitioner Family
DX: R53.1 Weakness (principal); R06.02 Shortness of breath; I25.2 Old myocardial infarction; R74.8 Abnormal levels of other serum enzymes; E87.1 Hypo-osmolality and hyponatremia; I12.9 Hypertensive chronic kidney disease with stage 1 through stage 4 chronic kidney disease, or unspecified chronic kidney disease; N18.4 Chronic kidney disease, stage 4 (severe); N40.0 Benign prostatic hyperplasia without lower urinary tract symptoms; E03.9 Hypothyroidism, unspecified; H40.9 Unspecified glaucoma; M10.9 Gout, unspecified; H35.30 Unspecified macular degeneration; N41.1 Chronic prostatitis; Z79.02 Long term (current) use of antithrombotics/antiplatelets; Z79.899 Other long term (current) drug therapy; Z87.891 Personal history of nicotine dependence
CPT/HCPCS: 96372; J1650; 80053; 85014; 85018; 36415; 85025; 84484; 83880; 71045; 94760 ×3; 99285; 93005; G0378

== ENCOUNTER → 2019-04-04 | Outpatient (CLI) | payer MEDICARE, OTHER | LOC: BFHOS 11:22 → EDSTATUS 11:24 | PROVIDERS: ATTEND Family Medicine | DX: I50.9 Heart failure, unspecified (principal) ==